=== PATIENT | male | born 1985 | race Hispanic/Latino ===

== ENCOUNTER 2016-12-05 19:56 | Emergency (ER) | payer SELFPAY ==
[2016-12-05 21:22] LABS: Basophils % (Auto) 0.9 % (0.0-1.8); Eosinophils % (Auto) 2.7 % (0.0-4.3); Hematocrit 45.6 % (35.5-45.6); Hemoglobin 15.1 gm/dl (11.8-15.2); Mean Corpuscular HGB Conc 33 % (32-34); Mean Corpuscular Hemoglobin 31 pg (28-32); Mean Corpuscular Volume 93 fl (84-94); Platelet Count 214 K/mm3 (140-440); Red Blood Count 4.89 M/mm3 (3.65-5.03); Red Cell Distribution Width 13.9 % (13.2-15.2); White Blood Count 11.7 K/mm3 (4.5-11.0)
[2016-12-05 21:29] LABS: Urine Drugs of Abuse Note Disclamer
[2016-12-05 21:33] LABS: Anion Gap 19 mmol/L; Blood Urea Nitrogen 12 mg/dL (9-20); Calcium 9.7 mg/dL (8.4-10.2); Carbon Dioxide 25 mmol/L (22-30); Chloride 104.2 mmol/L (98-107); Glucose 65 mg/dL (75-100); Potassium 4.8 mmol/L (3.6-5.0); Sodium 143 mmol/L (137-145)
[2016-12-05 21:58] LABS: Bilirubin,Urine NEG (Negative); Blood,Urine NEG (Negative); Ketones,Urine TR mg/dL (Negative); Leukocyte Esterase,Urine NEG (Negative); Mucus,Urine 1+ /HPF; Nitrite,Urine NEG (Negative); Protein,Urine <15 mg/dL mg/dL (Negative)
--- NOTE | 2016-12-06 07:01 | Emergency Department Report ---
ED Psych HPI - General Chief Complaint: Psych Stated Complaint: MH EVAL/HEARING VOICES Time Seen by Provider: 12/06/16 06:48 Source: patient Mode of arrival: Ambulatory Limitations: No Limitations - History of Present Illness Initial Comments: 31-year-old male presents to the emergency department for mental health evaluation. Patient states for the past 2 weeks he has been having paranoid thoughts and hearing voices. He denies suicidal or homicidal thoughts. He states he has been compliant with his medication. There are no other complaints. -: Gradual, week(s) (2) Associated Psychiatric Symptoms: auditory hallucinations History of same: Yes Quality: constant Improves With: none Worsens With: none Associated Symptoms: denies other symptoms Treatments Prior to Arrival: none - Related Data Previous Rx's Medication Instructions Recorded Last Taken Type [place] Carbonate [Eskalith] 300 mg PO BID #90 capsule 02/12/14 Unknown Rx traMADol [Ultram 50 MG tab] 50 mg PO Q6HR PRN #20 tablet 05/25/15 Unknown Rx Allergies Allergy/AdvReac Type Severity Reaction Status Date / Time lactase [From Dairy Aid] Allergy Nausea Verified 07/12/14 19:21 ED Review of Systems ROS: Stated complaint: MH EVAL/HEARING VOICES Other details as noted in HPI Comment: All other systems reviewed and negative Psychiatric: auditory hallucinations, other (paranoia). denies: visual hallucinations, homicidal thoughts, suicidal thoughts ED Past Medical Hx - Past Medical History Previous Medical History?: Yes Hx Psychiatric Treatment: Yes (Bipolar depression, Chronic anxiety, Schizo affective) Additional medical history: bronchitis - Surgical History Past Surgical History?: No - Family History Family history: no significant - Social History Smoking Status: Current Every Day Smoker Substance Use Type: None - Medications Home Medications: Home Medications Medication Instructions Recorded Confirmed Last Taken Type [place] Carbonate [Eskalith] 300 mg PO BID #90 capsule 02/12/14 12/06/16 Unknown Rx traMADol [Ultram 50 MG tab] 50 mg PO Q6HR PRN #20 tablet 05/25/15 12/06/16 Unknown Rx ED Physical Exam - General Limitations: No Limitations General appearance: alert, in no apparent distress - Head Head exam: Present: atraumatic, normocephalic - Eye Eye exam: Present: normal appearance, PERRL, EOMI - ENT ENT exam: Present: normal exam, normal orophraynx, mucous membranes moist - Neck Neck exam: Present: normal inspection, full ROM. Absent: tenderness - Respiratory Respiratory exam: Present: normal lung sounds bilaterally. Absent: respiratory distress - Cardiovascular Cardiovascular Exam: Present: regular rate, normal rhythm, normal heart sounds - GI/Abdominal GI/Abdominal exam: Present: soft, normal bowel sounds. Absent: distended, tenderness - Extremities Exam Extremities exam: Present: normal inspection, full ROM. Absent: tenderness - Back Exam Back exam: Present: normal inspection, full ROM. Absent: tenderness - Neurological Exam Neurological exam: Present: alert, oriented X3. Absent: motor sensory deficit - Skin Skin exam: Present: warm, dry, intact ED Course Vital Signs 12/05/16 12/06/16 12/06/16 21:03 00:47 04:27 Temperature 98.1 F 97.6 F 98.6 F Pulse Rate 93 H 66 60 Respiratory 18 18 18 Rate Blood Pressure 145/75 113/79 115/74 Blood Pressure [Left] O2 Sat by Pulse 97 100 100 Oximetry 12/06/16 12/06/16 05:15 09:36 Temperature 97.6 F Pulse Rate 77 Respiratory 16 16 Rate Blood Pressure Blood Pressure 120/59 [Left] O2 Sat by Pulse 99 99 Oximetry ED Medical Decision Making - Lab Data Result diagrams: 12/05/16 21:11 12/05/16 21:11 - Medical Decision Making Lab results reviewed and discussed with the patient. Patient has been medically cleared. Patient is awaiting mental health evaluation. 1100-patient has been evaluated by mental health. Per their report, the patient is now complaining of suicidal ideations, with no plan. On 1013 has been signed and placed on patient's chart. Patient is currently awaiting inpatient placement. - Differential Diagnosis schizoaffective disorder Critical care attestation.: If time is entered above; I have spent that time in minutes in the direct care of this critically ill patient, excluding procedure time. ED Disposition Clinical Impression: Suicidal ideation Schizoaffective disorder Qualifiers: Schizoaffective disorder type: bipolar Qualified Code(s): F25.0 - Schizoaffective disorder, bipolar type Disposition: DC/TX PSY HOSP/PSY UNIT Is pt being admited?: No Condition: Stable Referrals: PRIMARY CARE, [Primary Care Provider] - 3-5 Days Time of Disposition: 11:09
[2016-12-06 09:38] VITALS: BP 120/59
--- NOTE | 2016-12-06 15:25 | Consultation ---
History of Present Illness - Reason for Consult Consult date: 12/06/16 Reason for consult: Mental Health Evaluation Requesting physician: LESIA MASSEY - Chief Complaint Chief complaint: "I am suicidal" - History of Present Psychiatric Illness 31-year-old male presents to the emergency department for mental health evaluation. Patient states for the past 2 weeks he has been having paranoid thoughts and hearing voices. This patient is known to me. Today patient is calm , cooperative with a circumstantial thought process. He stated that he has been on "the edge for 2 weeks." He stated hearing ringing in his ears and anxious about a female resident at his custodial. He feels that she wants to poison him , so he does not eat lunch or dinner at the custodial. Patient has an hx of depression/anxiety and rate both 7/10, with 10 being the worse. Patient could not state if he was suicidal. He stated that he last took his medication 3 days ago. He does has a hx of recreation dug use, but denies alcohol consumption ( etoh). He denies sleep disturbance or a poor appetite. Medications and Allergies Allergies Allergy/AdvReac Type Severity Reaction Status Date / Time lactase [From Dairy Aid] Allergy Nausea Verified 07/12/14 19:21 Home Medications Medication Instructions Recorded Confirmed Last Taken Type [place] Carbonate [Eskalith] 300 mg PO BID #90 capsule 02/12/14 12/06/16 Unknown Rx traMADol [Ultram 50 MG tab] 50 mg PO Q6HR PRN #20 tablet 05/25/15 12/06/16 Unknown Rx Past psychiatric history - Past Medical History Past Medical History: other (Bronchitis) Past Surgical History: No surgical history - past Psychiatric treatment and history Psych: Anxiety, Bipolar, Depression, Schizophrenia psychiatric treatment history: Multiple inpatient settings. Denies a fam psy hx. - Social History Social history: other (Live at a custodial) Mental Status Exam - Vital signs Last Vital Signs Temp 97.6 F 12/06/16 09:36 Pulse 77 12/06/16 09:36 Resp 18 12/06/16 09:36 BP 120/59 12/06/16 09:36 Pulse Ox 99 12/06/16 09:36 - Exam Narrative exam: ROS (+) psychotic, (+) depression MSE: Appearance: cooperative, calm Behavior: poor eye contact Speech: loud rate and tone Mood: "I don't know" Affect: flat Thought Process: circumstantial Thought Content: denies HI's and VH's, paranoid Motor Activity: ambulatory Cognition: a/ox 3 Insight: limited Judgment: limited Results Result Diagrams: 12/05/16 21:11 12/05/16 21:11 Abnormal lab results 12/05/16 12/05/16 Range/Units 21:11 21:11 WBC 11.7 H (4.5-11.0) K/mm3 Glucose 65 L (75-100) mg/dL All other labs normal. Assessment and Plan Assessment and plan: Impression: Unspecified Mood DO with Psychotic Features. 31-year-old male presents to the emergency department for mental health evaluation. This patient is known to me. Today patient is calm, cooperative with a circumstantial thought process. He stated that he has been on "the edge for 2 weeks." He stated hearing ringing in his ears and anxious about a female resident at his custodial. He feels that she wants to poison him, so he does not eat lunch or dinner at the custodial. UDS is negative. Patient is no threat to self. Patient would like to reside at another custodial. DD: R/O Bipolar, Schizoaffective DO. Recommendation/Plan: Rescind 1013 and patient can continue his home medications.
[2016-12-06] MEDS ORDERED: ESKALITH PO SCH (20:00)
== END 2016-12-06 19:43 ==
LOC: ED 19:56
DX: F39 Unspecified mood [affective] disorder (principal); F31.9 Bipolar disorder, unspecified; F20.9 Schizophrenia, unspecified
CPT/HCPCS: 36415; 80048; 80178; 80307; 81001; 85025; 99284; G0480; 80320

== ENCOUNTER 2017-01-03 17:52 | Emergency (ER) | payer OTHER ==
[2017-01-03 19:11] LABS: Basophils % (Auto) 0.6 % (0.0-1.8); Eosinophils % (Auto) 0.9 % (0.0-4.3); Hematocrit 44.5 % (35.5-45.6); Hemoglobin 14.9 gm/dl (11.8-15.2); Mean Corpuscular HGB Conc 33 % (32-34); Mean Corpuscular Hemoglobin 31 pg (28-32); Mean Corpuscular Volume 93 fl (84-94); Platelet Count 208 K/mm3 (140-440); Red Blood Count 4.76 M/mm3 (3.65-5.03); Red Cell Distribution Width 14.1 % (13.2-15.2); White Blood Count 14.1 K/mm3 (4.5-11.0)
[2017-01-03 19:17] LABS: Urine Drugs of Abuse Note Disclamer
[2017-01-03 19:25] LABS: Anion Gap 17 mmol/L; Blood Urea Nitrogen 14 mg/dL (9-20); Calcium 9.9 mg/dL (8.4-10.2); Carbon Dioxide 27 mmol/L (22-30); Chloride 101.6 mmol/L (98-107); Glucose 89 mg/dL (75-100); Sodium 142 mmol/L (137-145)
[2017-01-03 19:39] LABS: Bilirubin,Urine NEG (Negative); Blood,Urine NEG (Negative); Ketones,Urine NEG (Negative); Leukocyte Esterase,Urine NEG (Negative); Nitrite,Urine NEG (Negative); Protein,Urine <15 mg/dL mg/dL (Negative); Urobilinogen,Urine < 2.0 mg/dL (<2.0)
--- NOTE | 2017-01-03 21:46 | Emergency Department Report ---
ED Psych HPI - General Chief Complaint: Psych Stated Complaint: SUICIDAL Time Seen by Provider: 01/03/17 21:36 Source: patient Mode of arrival: Ambulatory - History of Present Illness Initial Comments: Pt is a 31 yr old male with a history of Bipolar depression, Chronic anxiety, Schizo affective who presents from his retirement c/o SI with plan to overdose on all his psych medications. Pt reports he has been feeling this way for a long time since he was discharge from the hospital a while ago. Pt admits to drinking alcohol and eating marijuana laced foods. Pt [facility] to be [facility] to [facility]. Otherwise no other complaints. - Related Data Previous Rx's Medication Instructions Recorded Last Taken Type [place] Carbonate [Eskalith] 300 mg PO BID #90 capsule 02/12/14 Unknown Rx traMADol [Ultram 50 MG tab] 50 mg PO Q6HR PRN #20 tablet 05/25/15 Unknown Rx Allergies Allergy/AdvReac Type Severity Reaction Status Date / Time lactase [From Dairy Aid] Allergy Nausea Verified 07/12/14 19:21 ED Review of Systems ROS: Stated complaint: SUICIDAL Other details as noted in HPI Comment: All other systems reviewed and negative ED Past Medical Hx - Past Medical History Previous Medical History?: Yes Hx Psychiatric Treatment: Yes (Bipolar depression, Chronic anxiety, Schizo affective) Additional medical history: bronchitis - Surgical History Past Surgical History?: No - Social History Smoking Status: Current Every Day Smoker Substance Use Type: Alcohol, Prescribed - Medications Home Medications: Home Medications Medication Instructions Recorded Confirmed Last Taken Type [place] Carbonate [Eskalith] 300 mg PO BID #90 capsule 02/12/14 12/06/16 Unknown Rx traMADol [Ultram 50 MG tab] 50 mg PO Q6HR PRN #20 tablet 05/25/15 12/06/16 Unknown Rx ED Physical Exam - General Limitations: No Limitations General appearance: alert, in no apparent distress - Head Head exam: Present: atraumatic, normocephalic - Eye Eye exam: Present: normal appearance - ENT ENT exam: Present: mucous membranes moist - Neck Neck exam: Present: normal inspection - Respiratory Respiratory exam: Present: normal lung sounds bilaterally. Absent: respiratory distress - Cardiovascular Cardiovascular Exam: Present: regular rate, normal rhythm. Absent: systolic murmur, diastolic murmur, rubs, gallop - GI/Abdominal GI/Abdominal exam: Present: soft, normal bowel sounds - Rectal Rectal exam: Present: deferred - Extremities Exam Extremities exam: Present: normal inspection - Back Exam Back exam: Present: normal inspection - Neurological Exam Neurological exam: Present: alert, oriented X3 - Psychiatric Psychiatric exam: Present: depressed, flat affect, suicidal ideation. Absent: agitated, homicidal ideation - Skin Skin exam: Present: warm, dry, intact, normal color. Absent: rash ED Course Vital Signs 01/03/17 18:33 Temperature 98.1 F Pulse Rate 101 H Respiratory 16 Rate Blood Pressure 135/80 O2 Sat by Pulse 99 Oximetry ED Medical Decision Making - Lab Data Result diagrams: 01/03/17 Unknown 01/03/17 18:38 Critical care attestation.: If time is entered above; I have spent that time in minutes in the direct care of this critically ill patient, excluding procedure time. ED Disposition Condition: Stable Referrals: PRIMARY CARE, [Primary Care Provider] - 3-5 Days
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
[2017-01-04] MEDS ORDERED: BUSPAR ONE (21:49)
[2017-01-04] MEDS: BUSPAR PO SCH (22:06)
[2017-01-04] MEDS: ESKALITH PO SCH (22:07)
[2017-01-05] MEDS: BUSPAR PO SCH ×3 (08:59→20:30)
[2017-01-05] MEDS: PROzac PO SCH (10:50)
[2017-01-05] MEDS: ESKALITH PO SCH ×2 (10:50→22:14)
--- NOTE | 2017-01-05 15:57 | Progress Note ---
Subjective - Reason for Consult Reason for consult: expressing SI Mental Status Exam - Vital signs Last Vital Signs Temp 98.1 F 01/05/17 12:10 Pulse 70 01/05/17 12:10 Resp 18 01/05/17 12:12 BP 105/69 01/05/17 12:10 Pulse Ox 98 01/05/17 12:10 Assessment and Plan Patient continues to report passive SI. Mood remains fairly withdrawn and depressed. General Appearance: casually dressed, no acute distress Sensorium/Consciousness: alert and responding to external stimuli; clear Orientation: person, place, time and situation Eye Contact: limited Attitude / Behavior: guarded Psychomotor & Musculoskeletal Activity: WNL Mood: ok Affect: constricted, limited range Speech / Language: fluent, with normal rate/rhythm/tone Thought Processes: organized, logical, linear Thought Content: Passive SI, no HI Perception: no AVH Insight: limited Judgement: limitied Capacity for ADLs: independent Plan: Continue current pharmacotherapeutic interventions Continue the referral process for inpatient psychiatric services
[2017-01-06] MEDS: BUSPAR PO SCH ×3 (08:06→20:20)
[2017-01-06] MEDS: ESKALITH PO SCH ×2 (10:30→22:27)
[2017-01-06] MEDS: PROzac PO SCH (10:30)
--- NOTE | 2017-01-06 15:20 | Progress Note ---
Subjective - Reason for Consult Reason for consult: SI Mental Status Exam - Vital signs Last Vital Signs Temp 98.9 F 01/06/17 09:35 Pulse 74 01/06/17 09:35 Resp 18 01/06/17 09:35 BP 114/66 01/06/17 09:35 Pulse Ox 97 01/06/17 09:35 Assessment and Plan Patient continues to report passive SI. Mood remains fairly withdrawn and depressed. General Appearance: casually dressed, no acute distress Sensorium/Consciousness: alert and responding to external stimuli; clear Orientation: person, place, time and situation Eye Contact: limited Attitude / Behavior: guarded Psychomotor & Musculoskeletal Activity: WNL Mood: ok Affect: constricted, limited range Speech / Language: fluent, with normal rate/rhythm/tone Thought Processes: organized, logical, linear Thought Content: Passive SI, no HI Perception: no AVH Insight: limited Judgement: limitied Capacity for ADLs: independent Plan: Continue current pharmacotherapeutic interventions Continue the referral process for inpatient psychiatric services. Patient is pending acceptance at [facility]
--- NOTE | 2017-01-07 09:40 | Progress Note ---
Subjective - Reason for Consult Consult date: 01/07/17 Reason for consult: Pscyhiatry Follow-up - Chief Complaint Chief complaint: 'My life sucks" Mr. Pace is a 31 yr old male with a history of chronic anxiety & schizoaffective disorder, bipolar type who presented to the ED from his long-term c/o SI with plan to overdose on all his psych medications. Today patient is still withdrawn, sad, with passive SI's. He denies HI's and AVH's. He stated that he can't sleep at night because of the noise in the ER. He denies a poor appetite. He denies side effects of his medications. Mental Status Exam - Vital signs Last Vital Signs Temp 98.6 F 01/07/17 08:44 Pulse 91 H 01/07/17 08:44 Resp 20 01/07/17 08:44 BP 101/71 01/07/17 08:44 Pulse Ox 100 01/07/17 08:44 - Exam Narrative exam: MSE: Appearance: calm, cooperative Behavior: poor eye contact Speech: regular rate and tone Mood: "feel down" sad, withdrawn Affect: flat Thought Process: circumstantial Thought Content: denies HI's and AVH's Motor Activity: ambulatory Cognition: A/Ox 3 Insight: limited Judgment: limited Assessment and Plan Impression: Historical Dx: Schizoaffective DO, Anxiety DO Alcohol/Cannabis Use DO's. Today patient is still withdrawn, sad, with passive SI's. He denies HI's and AVH's. No acute withdrawals noted. Recommendation/Plan: Continue 1013 with pending placement to [facility] Continue Seroquel 300mg hs for mood/psychotic symptoms, Buspar 10mg tid for anxiety, Prozac 40mg daily for anxiety and [place] 300mg. Discusses possible metabolic side effects of seroquel and possible suicidality/medication induced srinivas reference antidepressants with patients.
[2017-01-07] MEDS: PROzac PO SCH (09:46)
[2017-01-07] MEDS: ESKALITH PO SCH ×2 (09:46→21:54)
[2017-01-07] MEDS: BUSPAR PO SCH ×3 (09:46→20:05)
[2017-01-08 08:08] VITALS: BP 100/68
--- NOTE | 2017-01-08 10:11 | Progress Note ---
Subjective - Reason for Consult Consult date: 01/08/17 Reason for consult: Psychiatry Follow-up - Chief Complaint Chief complaint: "I am ready to go to [facility]" Mr. Pace is a 31 yr old male with a history of chronic anxiety & schizoaffective disorder, bipolar type who presented to the ED from his snf c/o SI with plan to overdose on all his psych medications. Today patient is still withdrawn but calm and cooperative. He stated that he does not feel safe being discharged because of the SI's currently he is experiencing. He stated that he will use all the resources [facility] have to offer once he is discharged from that hospital. He stated that people (the general public) know his thoughts and that bothers him. He denies HI's, VH's, but does have intermittent auditory hallucinations. He denies sleep disturbance or a poor appetite. He denies side effects of his medications. Mental Status Exam - Vital signs Last Vital Signs Temp 98.0 F 01/08/17 08:07 Pulse 78 01/08/17 08:07 Resp 18 01/08/17 08:07 BP 100/68 01/08/17 08:07 Pulse Ox 98 01/08/17 08:07 - Exam Narrative exam: MSE: Appearance: calm, cooperative Behavior: poor eye contact Speech: regular rate and tone Mood: "okay" withdrawn Affect: flat Thought Process: circumstantial Thought Content: denies HI's and VH's Motor Activity: ambulatory Cognition: A/Ox 3 Insight: limited Judgment: limited Assessment and Plan Impression: Historical Dx: Schizoaffective DO, Anxiety DO Alcohol/Cannabis Use DO's. Today patient is still withdrawn, but calm and cooperative. He denies HI' s and VH's. No acute withdrawals noted. Recommendation/Plan: Continue 1013 with placement to [facility] awaiting transfer time. Continue Seroquel 300mg HS for mood/psychotic symptoms, Buspar 10mg tid for anxiety, Prozac 40mg daily for anxiety and [place] 300mg. Discusses possible metabolic side effects of seroquel and possible suicidality/ medication induced srinivas reference antidepressants with patients.
[2017-01-08] MEDS: ESKALITH PO SCH (10:46)
[2017-01-08] MEDS: PROzac PO SCH (10:46)
[2017-01-08] MEDS: BUSPAR PO SCH ×2 (10:48→14:01)
== END 2017-01-08 14:02 ==
LOC: ED 17:52 → EEVIPCON 17:52 → ED 01-08 14:02
DX: R45.851 Suicidal ideations (principal); F31.9 Bipolar disorder, unspecified; F25.9 Schizoaffective disorder, unspecified
CPT/HCPCS: 36415; 80048; 80178; 80307; 81001; 85025; 99285; G0480; 80320

== ENCOUNTER 2017-02-11 05:44 | Emergency (ER) | payer SELFPAY ==
[2017-02-11 07:10] LABS: Eosinophils % (Auto) 2.8 % (0.0-4.3); Hematocrit 42.6 % (35.5-45.6); Hemoglobin 14.6 gm/dl (11.8-15.2); Mean Corpuscular HGB Conc 34 % (32-34); Mean Corpuscular Hemoglobin 31 pg (28-32); Mean Corpuscular Volume 91 fl (84-94); Platelet Count 252 K/mm3 (140-440); Red Blood Count 4.66 M/mm3 (3.65-5.03); Red Cell Distribution Width 13.8 % (13.2-15.2); White Blood Count 11.3 K/mm3 (4.5-11.0)
[2017-02-11 07:26] LABS: Anion Gap 16 mmol/L; Blood Urea Nitrogen 7 mg/dL (9-20); Carbon Dioxide 28 mmol/L (22-30); Chloride 101.3 mmol/L (98-107); Glucose 100 mg/dL (75-100); Potassium 4.4 mmol/L (3.6-5.0); Sodium 141 mmol/L (137-145)
[2017-02-11 07:38] LABS: Bilirubin,Urine NEG (Negative); Blood,Urine NEG (Negative); Ketones,Urine NEG (Negative); Leukocyte Esterase,Urine NEG (Negative); Mucus,Urine FEW /HPF; Nitrite,Urine NEG (Negative); Protein,Urine <15 mg/dL mg/dL (Negative)
[2017-02-11 08:51] LABS: Urine Drugs of Abuse Note Disclamer
--- NOTE | 2017-02-11 09:44 | Emergency Department Report ---
ED Psych HPI - General Chief Complaint: Psych Stated Complaint: SUICIDAL/MH EVAL Time Seen by Provider: 02/11/17 08:20 Source: patient Mode of arrival: Ambulatory - History of Present Illness Initial Comments: The patient admits that he ran away from his [facility] because he would like to go to "[facility] for 2 months at least". He states that he was at [facility] for 2 months in the past for similar suicidal ideation. He states in the past he has taken a drug overdose. At this time he denies any actual self harm. He has not taken an overdose. He has not traumatized himself. He is requesting long-term psychiatric care in an inpatient facility. He denies any active hallucinosis. He is not voicing any paranoid ideation. MD Complaint: suicidal ideation, feels depressed -: year(s) Associated Psychiatric Symptoms: suicidal ideation History of same: Yes Quality: intermittent Improves With: none Worsens With: none Context: other (dissatisfied with his group will) Associated Symptoms: denies other symptoms If Self Harm: admits thoughts of - Related Data Home Medications Medication Instructions Recorded Confirmed Last Taken FLUoxetine HCL [PROzac] 40 mg PO QAM 02/11/17 02/11/17 Unknown QUEtiapine [SEROquel] 200 mg PO QAM 02/11/17 02/11/17 Unknown QUEtiapine [SEROquel] 600 mg PO QHS 02/11/17 02/11/17 Unknown busPIRone [Buspar] 10 mg PO BID 02/11/17 02/11/17 Unknown Previous Rx's Medication Instructions Recorded Last Taken Type [place] Carbonate [Eskalith] 300 mg PO BID #90 capsule 02/12/14 Unknown Rx traMADol [Ultram 50 MG tab] 50 mg PO Q6HR PRN #20 tablet 05/25/15 Unknown Rx Allergies Allergy/AdvReac Type Severity Reaction Status Date / Time lactase [From Dairy Aid] Allergy Nausea Verified 07/12/14 19:21 ED Review of Systems ROS: Stated complaint: SUICIDAL/MH EVAL Other details as noted in HPI Constitutional: denies: chills, fever Eyes: denies: eye pain, eye discharge, vision change ENT: denies: ear pain, throat pain Respiratory: denies: cough, shortness of breath, wheezing Cardiovascular: denies: chest pain, palpitations Endocrine: no symptoms reported Gastrointestinal: denies: abdominal pain, nausea, diarrhea Genitourinary: denies: urgency, dysuria Musculoskeletal: denies: back pain, joint swelling, arthralgia Skin: denies: rash, lesions Neurological: denies: headache, weakness, paresthesias Psychiatric: suicidal thoughts. denies: anxiety Hematological/Lymphatic: denies: easy bleeding, easy bruising ED Past Medical Hx - Past Medical History Previous Medical History?: Yes Hx Psychiatric Treatment: Yes (Bipolar depression, Chronic anxiety, Schizo affective) Additional medical history: bronchitis - Social History Smoking Status: Current Every Day Smoker Substance Use Type: Alcohol - Medications Home Medications: Home Medications Medication Instructions Recorded Confirmed Last Taken Type Tolu Carbonate [Eskalith] 300 mg PO BID #90 capsule 02/12/14 02/11/17 Unknown Rx traMADol [Ultram 50 MG tab] 50 mg PO Q6HR PRN #20 tablet 05/25/15 02/11/17 Unknown Rx FLUoxetine HCL [PROzac] 40 mg PO QAM 02/11/17 02/11/17 Unknown History QUEtiapine [SEROquel] 200 mg PO QAM 02/11/17 02/11/17 Unknown History QUEtiapine [SEROquel] 600 mg PO QHS 02/11/17 02/11/17 Unknown History busPIRone [Buspar] 10 mg PO BID 02/11/17 02/11/17 Unknown History ED Physical Exam - General Limitations: Other General appearance: alert, in no apparent distress - Head Head exam: Present: atraumatic, normocephalic - Eye Eye exam: Present: normal appearance - ENT ENT exam: Present: mucous membranes moist - Neck Neck exam: Present: normal inspection - Respiratory Respiratory exam: Present: normal lung sounds bilaterally. Absent: respiratory distress - Cardiovascular Cardiovascular Exam: Present: regular rate, normal rhythm. Absent: systolic murmur, diastolic murmur, rubs, gallop - GI/Abdominal GI/Abdominal exam: Present: soft, normal bowel sounds. Absent: distended, tenderness, guarding, rebound - Rectal Rectal exam: Present: deferred - Extremities Exam Extremities exam: Present: normal inspection - Back Exam Back exam: Present: normal inspection - Neurological Exam Neurological exam: Present: alert, oriented X3, CN II-XII intact. Absent: motor sensory deficit - Psychiatric Psychiatric exam: Present: normal mood, flat affect - Skin Skin exam: Present: warm, dry, intact, normal color. Absent: rash ED Course Vital Signs 02/11/17 02/11/17 02/11/17 06:02 09:28 09:29 Temperature 98.5 F 97.9 F Pulse Rate 87 87 Respiratory 18 16 16 Rate Blood Pressure 122/73 Blood Pressure 114/69 [Left] O2 Sat by Pulse 96 98 98 Oximetry - Reevaluation(s) Reevaluation #1: Psychiatry staff has determined that this patient needs 1013 criteria. His transfer is pending. 02/11/17 13:00 ED Medical Decision Making - Lab Data Result diagrams: 02/11/17 06:52 02/11/17 06:52 Laboratory Results - last 24 hr 02/11/17 02/11/17 02/11/17 06:52 06:52 06:58 WBC 11.3 H RBC 4.66 Hgb 14.6 Hct 42.6 MCV 91 MCH 31 MCHC 34 RDW 13.8 Plt Count 252 Lymph % (Auto) 21.1 [place] % (Auto) 8.3 H Eos % (Auto) 2.8 Baso % (Auto) 1.0 Lymph # 2.4 [place] # 0.9 H Eos # 0.3 Baso # 0.1 Seg Neutrophils % 66.8 Seg Neutrophils # 7.5 Sodium 141 Potassium 4.4 Chloride 101.3 Carbon Dioxide 28 Anion Gap 16 BUN 7 L Creatinine 1.0 Estimated GFR > 60 BUN/Creatinine Ratio 7.00 Glucose 100 Calcium 10.0 Urine Color Yellow Urine Turbidity Clear Urine pH 6.0 Ur Specific [place] 1.015 Urine Protein <15 mg/dl Urine Glucose (UA) Neg Urine Ketones Neg Urine Blood Neg Urine Nitrite Neg Urine Bilirubin Neg Urine Urobilinogen 2.0 Ur Leukocyte Esterase Neg Urine WBC (Auto) 2.0 Urine RBC (Auto) 1.0 U Epithel Cells (Auto) < 1.0 Urine Mucus Few Critical care attestation.: If time is entered above; I have spent that time in minutes in the direct care of this critically ill patient, excluding procedure time. ED Disposition Clinical Impression: Suicidal ideation Bipolar disorder Qualifiers: Active/Remission status: remission status unspecified Qualified Code(s): F31.9 - Bipolar disorder, unspecified Disposition: DC/TX-65 PSY HOSP/PSY UNIT Is pt being admited?: No Does the pt Need Aspirin: No Condition: Stable Referrals: PRIMARY CARE, [Primary Care Provider] - 3-5 Days Time of Disposition: 13:00
--- NOTE | 2017-02-11 15:43 | Consultation ---
History of Present Illness - Reason for Consult Consult date: 02/11/17 Reason for consult: Mental Health Evaluation Requesting physician: SANTOS RUANO - Chief Complaint Chief complaint: "I don't know what is happening" - History of Present Psychiatric Illness This is a 31 y.o. white male presenting to [facility] for SI's and anxiety. This patient is known to me. Today patient is cooperative, but anxious and disorganized during the assessment. He stated that he is anxious about not being able to move with his sister who is located in [place]. He is currently on probation and cannot leave the state. He stated that his life is "screwed up " and want to without a plan. He could not elaborate more about his SI's. Patient has attempted suicide in the past by overdosing on pills. He stated hearing voices the past 3 days telling him to harm himself. He denies HI's and VH's. He rate his depression 6/10, with 10 being the worse. He report sleep disturbance, but denies a poor appetite. He denies recreational drug use and excessive alcohol consumption (etoh). He stated that he would like to go to [facility] if possible. Medications and Allergies Allergies Allergy/AdvReac Type Severity Reaction Status Date / Time lactase [From Dairy Aid] Allergy Nausea Verified 07/12/14 19:21 Home Medications Medication Instructions Recorded Confirmed Last Taken Type [place] Carbonate [Eskalith] 300 mg PO BID #90 capsule 02/12/14 02/11/17 Unknown Rx traMADol [Ultram 50 MG tab] 50 mg PO Q6HR PRN #20 tablet 05/25/15 02/11/17 Unknown Rx FLUoxetine HCL [PROzac] 40 mg PO QAM 02/11/17 02/11/17 Unknown History QUEtiapine [SEROquel] 200 mg PO QAM 02/11/17 02/11/17 Unknown History QUEtiapine [SEROquel] 600 mg PO QHS 02/11/17 02/11/17 Unknown History busPIRone [Buspar] 10 mg PO BID 02/11/17 02/11/17 Unknown History Past psychiatric history - Past Medical History Past Medical History: No medical history Past Surgical History: No surgical history - past Psychiatric treatment and history psychiatric treatment history: Multiple inpatient psy settings. Denies a fam psy hx. - Social History Social history: other (GED, resides at a prison) Mental Status Exam - Vital signs Last Vital Signs Temp 97.9 F 02/11/17 09:28 Pulse 87 02/11/17 09:28 Resp 16 02/11/17 09:29 BP 114/69 02/11/17 09:28 Pulse Ox 98 02/11/17 09:29 - Exam Narrative exam: ROS: (+) anxious, (+) depression MSE: Appearance: cooperative Behavior: regular eye contact Speech: regular rate and tone Mood: "horrible" Affect: flat Thought Process: circumstantial Thought Content: denies SI/HI's and AVH's, disorganized Motor Activity: lying in bed Cognition: A/Ox 3 Insight: limited Judgment: limited Results Result Diagrams: 02/11/17 06:52 02/11/17 06:52 Abnormal lab results 02/11/17 02/11/17 Range/Units 06:52 06:52 WBC 11.3 H (4.5-11.0) K/mm3 [place] % (Auto) 8.3 H (0.0-7.3) % [place] # 0.9 H (0.0-0.8) K/mm3 BUN 7 L (9-20) mg/dL All other labs normal. Assessment and Plan Assessment and plan: Impression: Historical Dx: Schizoaffective DO. MDD Severe Type. Today patient is cooperative, but anxious during the assessment. Patient experiencing AH's. DDx: Schizophrenia Recommendation/Plan: Initiate 1013 with placement to inpatient psy services. Start Seroquel 300 mg PO HS for psychotic symptoms/mood, Buspar 10 mg PO BID for anxiety, and [place] 300 mg PO BID for mood. Discussed possible metabolic side effects of Seroquel with patient.
[2017-02-11] MEDS: ESKALITH PO SCH (22:39)
[2017-02-11] MEDS: BUSPAR PO SCH (22:39)
[2017-02-12] MEDS: ESKALITH PO SCH ×2 (10:34→22:45)
--- NOTE | 2017-02-12 11:08 | Progress Note ---
Subjective - Reason for Consult Consult date: 02/12/17 Reason for consult: Psychiatry Follow-up - Chief Complaint Chief complaint: "I want the voices to go away" This is a 31 y.o. white male presenting to [facility] for SI's and anxiety. This patient is known to me. Today patient is calm and cooperative during the assessment. He stated that the voices he hear have not decreased and this drives him "crazy." He stated that he is still suicidal without a plan. He is adamant about wanting to move to [place] with his sister. He is aware that he must pay his probation fine before he can move. He denies HI's and VH's. He stated that he slept "okay" last night. He denies a poor appetite. Patient denies any side effects of his medications. Mental Status Exam - Vital signs Last Vital Signs Temp 98.4 F 02/12/17 08:39 Pulse 65 02/12/17 08:39 Resp 20 02/12/17 08:39 BP 119/80 02/12/17 08:39 Pulse Ox 100 02/12/17 08:39 - Exam Narrative exam: MSE: Appearance: calm, cooperative Behavior: regular eye contact Speech: regular rate and tone Mood: "bad" Affect: flat Thought Process: circumstantial Thought Content: denies SI/HI's and AVH's Motor Activity: lying in bed Cognition: A/Ox 3 Insight: limited Judgment: limited Assessment and Plan mpression: Historical Dx: Schizoaffective DO. MDD Severe Type. Today patient is calm and cooperative during the assessment. Patient still suicidal with AH's. Recommendation/Plan: Continue 1013 with placement to inpatient psy services. Modify Seroquel to 400 mg PO HS for psychotic symptoms/mood, Buspar 10 mg PO BID for anxiety, and [place] 300 mg PO BID for mood. Discussed possible metabolic side effects of Seroquel with patient.
[2017-02-12] MEDS: BUSPAR PO SCH ×2 (13:30→22:45)
[2017-02-13] MEDS: ESKALITH PO SCH ×2 (10:42→22:02)
[2017-02-13] MEDS: BUSPAR PO SCH ×2 (10:42→22:02)
--- NOTE | 2017-02-13 14:18 | Progress Note ---
Subjective - Reason for Consult Consult date: 02/13/17 Reason for consult: follow up - Chief Complaint Chief complaint: "The herrera are closing in" This is a 31 y.o. white male presenting to [facility] for SI's and anxiety. This patient is known to me and the other members of the psychiatric team. Today patient is calm and cooperative during the assessment. He denies AH today. He discussed how he is tired of his situation and in his mind he thought he could go away to a hospital for a couple of months and his sister would pay his fine and he could go to [place]. He states he feels hopeless about being in the same situation for another 5 years. He states he is miserable, isolates himself , is anxious, and paranoid. He denies a poor appetite. Patient denies any side effects of his medications. Mental Status Exam - Vital signs Last Vital Signs Temp 97.9 F 02/13/17 08:13 Pulse 72 02/13/17 08:13 Resp 16 02/13/17 08:14 BP 111/71 02/13/17 08:13 Pulse Ox 99 02/13/17 08:14 Assessment and Plan MSE: passive thoughts of Appearance: calm, cooperative Behavior: regular eye contact Speech: regular rate and tone Mood: depressed Affect: flat Thought Process: circumstantial Thought Content: denies SI/HI's and AVH's Motor Activity: lying in bed Cognition: A/Ox 3 Insight: limited Judgment: limited Assessment and Plan mpression: Historical Dx: Schizoaffective DO. MDD Severe Type. Today patient is calm and cooperative during the assessment. Recommendation/Plan: Continue 1013 with placement to inpatient psy services. Seroquel was increased to 400 mg PO HS for psychotic symptoms/mood yesterday, Buspar 10 mg PO BID for anxiety, and [place] 300 mg PO BID for mood.
[2017-02-14] MEDS: BUSPAR PO SCH ×2 (10:47→22:00)
[2017-02-14] MEDS: ESKALITH PO SCH ×2 (10:47→22:00)
--- NOTE | 2017-02-14 11:41 | Progress Note ---
Subjective - Reason for Consult Consult date: 02/14/17 Reason for consult: Psychiatry Follow-up - Chief Complaint Chief complaint: "I hope everything goes well" This is a 31 y.o. white male presenting to [facility] for SI's and anxiety. This patient is known to me and the other members of the psychiatric team. Today patient is calm and cooperative during the assessment. He stated the SI's has decreased, but he still feel suicidal. He is adamant about moving to [place] once he pay his probation fine. He stated that [facility] is the best hospital in the [facility] and would like to go there. He denies HI's and AVH's. He stated feeling down today, but could not explain why. Patient denies any side effects of his medications. Mental Status Exam - Vital signs Last Vital Signs Temp 98 F 02/14/17 03:58 Pulse 76 02/14/17 03:58 Resp 18 02/14/17 09:53 BP 114/68 02/14/17 03:58 Pulse Ox 100 02/14/17 09:53 - Exam Narrative exam: MSE: Appearance: calm, cooperative Behavior: regular eye contact Speech: regular rate and tone Mood: "so so" Affect: flat Thought Process: circumstantial Thought Content: denies SI and AVH's Motor Activity: lying in bed Cognition: A/Ox 3 Insight: limited Judgment: limited Assessment and Plan Impression: Historical Dx: Schizoaffective DO. MDD Severe Type. Today patient is calm and cooperative during the assessment. Passive SI's. Recommendation/Plan: Continue 1013 with placement to [facility] pending transport time. Continue Seroquel 400 mg PO HS for psychotic symptoms/ mood yesterday, Buspar 10 mg PO BID for anxiety, and [place] 300 mg PO BID for mood.
[2017-02-14 19:52] VITALS: BP 115/65
== END 2017-02-14 22:38 ==
LOC: ED 05:44 → EEVIPCON 05:44 → ED 02-14 22:38
DX: F31.9 Bipolar disorder, unspecified (principal); R45.851 Suicidal ideations; F17.200 Nicotine dependence, unspecified, uncomplicated
CPT/HCPCS: 36415; 80048; 80178; 80307; 81001; 85025; 99285; G0480; 80320

== ENCOUNTER 2017-02-26 09:48 | Emergency (ER) | payer SELFPAY ==
--- NOTE | 2017-02-26 10:32 | Emergency Department Report ---
Entered by KEYONA MENA, acting as scribe for TATE ACEVES NP. Chief Complaint: Nausea/Vomiting/Diarrhea Stated Complaint: NAUSEA/VOMITING Time Seen by Provider: 02/26/17 10:25 - HPI History of Present Illness: 31 y/o male with PMHx of SI, presents with abd pain and n/v that started 2 days ago after a change in his medication. Pt notes he was switched from Seroquel to risperdal prior to Sx started. He also notes being paranoid on new medication. - ROS Review of Systems: +abd pain +n/v +paranoia - Exam Vital Signs: Vital Signs 02/26/17 10:24 Temperature 97.9 F Pulse Rate 94 H Respiratory 16 Rate Blood Pressure 136/71 O2 Sat by Pulse 100 Oximetry Physical Exam: abd soft/nontender in all quadrants, no rebound or guarding MSE screening note: Focused history and physical exam performed. Due to findings the following was ordered: labs, mhe ED Disposition for MSE Condition: Stable This documentation as recorded by the scribe,KEYONA MENA,accurately reflects the service I personally performed and the decisions made by KETAN resendiz TRACY M, NP.
[2017-02-26 10:48] LABS: Hematocrit 47.3 % (35.5-45.6); Hemoglobin 15.7 gm/dl (11.8-15.2); Mean Corpuscular HGB Conc 33 % (32-34); Mean Corpuscular Hemoglobin 31 pg (28-32); Mean Corpuscular Volume 92 fl (84-94); Platelet Count 210 K/mm3 (140-440); Red Blood Count 5.12 M/mm3 (3.65-5.03); White Blood Count 14.3 K/mm3 (4.5-11.0)
[2017-02-26 11:05] LABS: Alanine Aminotransferase 14 units/L (7-56); Albumin 4.5 g/dL (3.9-5); Albumin/Globulin Ratio 1.7 %; Alkaline Phosphatase 46 units/L (35-129); Anion Gap 17 mmol/L; Blood Urea Nitrogen 9 mg/dL (9-20); Calcium 9.7 mg/dL (8.4-10.2); Carbon Dioxide 23 mmol/L (22-30); Chloride 102.3 mmol/L (98-107); Glucose 101 mg/dL (75-100); Potassium 4.5 mmol/L (3.6-5.0); Sodium 138 mmol/L (137-145); Total Protein 7.1 g/dL (6.3-8.2)
[2017-02-26 11:07] LABS: Urine Drugs of Abuse Note Disclamer
[2017-02-26 11:21] LABS: Bilirubin,Urine NEG (Negative); Blood,Urine NEG (Negative); Ketones,Urine NEG (Negative); Leukocyte Esterase,Urine NEG (Negative); Mucus,Urine FEW /HPF; Nitrite,Urine NEG (Negative); Protein,Urine <15 mg/dL mg/dL (Negative); RBC,Urine < 1.0 /HPF (0.0-6.0); Urobilinogen,Urine < 2.0 mg/dL (<2.0)
[2017-02-26 11:45] LABS: Basophils % (Auto) 0.4 % (0.0-1.8); Eosinophils % (Auto) 0.4 % (0.0-4.3)
--- NOTE | 2017-02-26 13:09 | Emergency Department Report ---
ED N/V/D HPI - General Chief complaint: Nausea/Vomiting/Diarrhea Stated complaint: NAUSEA/VOMITING Time Seen by Provider: 02/26/17 10:25 Source: patient Mode of arrival: Ambulatory Limitations: No Limitations - History of Present Illness MD complaint: nausea, vomiting -: Gradual Description of Vomiting: food contents, watery Associated Abdominal Pain: No Consistency: intermittent, now resolved Improves with: none - Related Data Home Medications Medication Instructions Recorded Confirmed Last Taken FLUoxetine HCL [PROzac] 40 mg PO QAM 02/11/17 02/11/17 Unknown busPIRone [Buspar] 10 mg PO BID 02/11/17 02/11/17 Unknown Previous Rx's Medication Instructions Recorded Last Taken Type [place] Carbonate [Eskalith] 300 mg PO BID #90 capsule 02/12/14 Unknown Rx traMADol [Ultram 50 MG tab] 50 mg PO Q6HR PRN #20 tablet 05/25/15 Unknown Rx QUEtiapine [SEROquel] 200 mg PO QAM #90 tablet 02/26/17 Unknown Rx QUEtiapine [SEROquel] 600 mg PO QHS #90 tablet 02/26/17 Unknown Rx Allergies Allergy/AdvReac Type Severity Reaction Status Date / Time lactase [From Dairy Aid] Allergy Nausea Verified 07/12/14 19:21 ED Review of Systems ROS: Stated complaint: NAUSEA/VOMITING Other details as noted in HPI Comment: All other systems reviewed and negative ED Past Medical Hx - Past Medical History Previous Medical History?: Yes Hx Psychiatric Treatment: Yes (Bipolar depression, Chronic anxiety, Schizo affective) Additional medical history: bronchitis - Surgical History Past Surgical History?: No - Social History Smoking Status: Current Every Day Smoker Substance Use Type: None - Medications Home Medications: Home Medications Medication Instructions Recorded Confirmed Last Taken Type [place] Carbonate [Eskalith] 300 mg PO BID #90 capsule 02/12/14 02/11/17 Unknown Rx traMADol [Ultram 50 MG tab] 50 mg PO Q6HR PRN #20 tablet 05/25/15 02/11/17 Unknown Rx FLUoxetine HCL [PROzac] 40 mg PO QAM 02/11/17 02/11/17 Unknown History busPIRone [Buspar] 10 mg PO BID 02/11/17 02/11/17 Unknown History QUEtiapine [SEROquel] 200 mg PO QAM #90 tablet 02/26/17 Unknown Rx QUEtiapine [SEROquel] 600 mg PO QHS #90 tablet 02/26/17 Unknown Rx ED Physical Exam - General Limitations: No Limitations General appearance: alert, in no apparent distress - Head Head exam: Present: atraumatic, normocephalic - Eye Eye exam: Present: normal appearance - ENT ENT exam: Present: mucous membranes moist - Neck Neck exam: Present: normal inspection - Respiratory Respiratory exam: Present: normal lung sounds bilaterally. Absent: respiratory distress - Cardiovascular Cardiovascular Exam: Present: regular rate, normal rhythm. Absent: systolic murmur, diastolic murmur, rubs, gallop - GI/Abdominal GI/Abdominal exam: Present: soft, normal bowel sounds - Rectal Rectal exam: Present: deferred - Extremities Exam Extremities exam: Present: normal inspection - Back Exam Back exam: Present: normal inspection - Neurological Exam Neurological exam: Present: alert, oriented X3 - Psychiatric Psychiatric exam: Present: normal affect, normal mood - Skin Skin exam: Present: warm, dry, intact, normal color. Absent: rash ED Course Vital Signs 02/26/17 10:24 Temperature 97.9 F Pulse Rate 94 H Respiratory 16 Rate Blood Pressure 136/71 O2 Sat by Pulse 100 Oximetry ED Medical Decision Making - Lab Data Result diagrams: 02/26/17 10:31 02/26/17 10:31 - Medical Decision Making patient doing well just wants me to change his meds back to seroquel Critical care attestation.: If time is entered above; I have spent that time in minutes in the direct care of this critically ill patient, excluding procedure time. ED Disposition Clinical Impression: Bipolar disorder Disposition: DC-01 TO HOME OR SELFCARE Is pt being admited?: No Does the pt Need Aspirin: No Condition: Good Prescriptions: QUEtiapine [SEROquel] 600 mg PO QHS #90 tablet QUEtiapine [SEROquel] 200 mg PO QAM #90 tablet Referrals: PRIMARY CARE, [Primary Care Provider] - 3-5 Days
[2017-02-26 13:54] VITALS: BP 130/70
== END 2017-02-26 13:54 | disposition home or self-care (01) ==
LOC: ED 09:48
DX: F31.9 Bipolar disorder, unspecified (principal); F25.9 Schizoaffective disorder, unspecified; F17.200 Nicotine dependence, unspecified, uncomplicated; F41.9 Anxiety disorder, unspecified; Z91.011 Allergy to milk products
CPT/HCPCS: 36415; 80053; 80307; 81001; 83690; 85025; 99284; G0480; 80320

== ENCOUNTER 2017-05-15 18:24 | Emergency (ER) | payer OTHER ==
[2017-05-15 20:08] LABS: Basophils % (Auto) 0.6 % (0.0-1.8); Eosinophils % (Auto) 1.8 % (0.0-4.3); Hemoglobin 13.4 gm/dl (11.8-15.2); Mean Corpuscular HGB Conc 34 % (32-34); Mean Corpuscular Hemoglobin 31 pg (28-32); Mean Corpuscular Volume 93 fl (84-94); Platelet Count 190 K/mm3 (140-440); Red Blood Count 4.29 M/mm3 (3.65-5.03); Red Cell Distribution Width 14.2 % (13.2-15.2); White Blood Count 14.7 K/mm3 (4.5-11.0)
[2017-05-15 20:20] LABS: Anion Gap 15 mmol/L; BUN/Creatinine Ratio 11; Blood Urea Nitrogen 11 mg/dL (9-20); Calcium 8.7 mg/dL (8.4-10.2); Carbon Dioxide 25 mmol/L (22-30); Chloride 100.7 mmol/L (98-107); Glucose 163 mg/dL (75-100); Potassium 3.8 mmol/L (3.6-5.0); Sodium 137 mmol/L (137-145)
[2017-05-15 20:41] LABS: Urine Drugs of Abuse Note Disclamer
[2017-05-15 20:47] LABS: Bilirubin,Urine NEG (Negative); Blood,Urine NEG (Negative); Ketones,Urine NEG (Negative); Leukocyte Esterase,Urine NEG (Negative); Nitrite,Urine NEG (Negative); Protein,Urine <15 mg/dL mg/dL (Negative); Urobilinogen,Urine < 2.0 mg/dL (<2.0)
--- NOTE | 2017-05-15 21:49 | Emergency Department Report ---
ED Psych HPI - General Chief Complaint: Psych Stated Complaint: HOMICIDAL,SUICIDAL Time Seen by Provider: 05/15/17 21:44 Source: patient Mode of arrival: Ambulatory Limitations: No Limitations - History of Present Illness MD Complaint: suicidal ideation, feels depressed -: Sudden Associated Psychiatric Symptoms: depression, suicidal ideation, homicidal ideation, racing thoughts Quality: constant, getting worse Improves With: medication, therapy Worsens With: other (stress) Context: significant life stressor Associated Symptoms: nausea, vomiting, other (body aches) Treatments Prior to Arrival: placed on mental he If Self Harm: admits thoughts of, has plan - Related Data Home Medications Medication Instructions Recorded Confirmed Last Taken FLUoxetine HCL [PROzac] 40 mg PO QAM 02/11/17 05/15/17 05/15/17 busPIRone [Buspar] 10 mg PO BID 02/11/17 05/15/17 05/15/17 Thioridazine [Mellaril] 50 mg PO BID 05/15/17 05/15/17 05/15/17 Previous Rx's Medication Instructions Recorded Last Taken Type [place] Carbonate [Eskalith] 300 mg PO BID #90 capsule 02/12/14 05/15/17 Rx Allergies Allergy/AdvReac Type Severity Reaction Status Date / Time lactase [From Dairy Aid] Allergy Nausea Verified 07/12/14 19:21 risperidone [From Risperdal] AdvReac Nausea Verified 05/15/17 18:44 ED Review of Systems ROS: Stated complaint: HOMICIDAL,SUICIDAL Other details as noted in HPI Comment: All other systems reviewed and negative Constitutional: see HPI, other (body aches) Eyes: as per HPI ENT: as per HPI Respiratory: no symptoms reported Cardiovascular: as per HPI Endocrine: no symptoms reported, see HPI Gastrointestinal: as per HPI Genitourinary: as per HPI Musculoskeletal: as per HPI Skin: as per HPI Neurological: as per HPI Psychiatric: as per HPI, anxiety, depression, homicidal thoughts, suicidal thoughts Hematological/Lymphatic: as per HPI ED Past Medical Hx - Past Medical History Previous Medical History?: Yes Hx Psychiatric Treatment: Yes (Bipolar depression, Chronic anxiety, Schizo affective) Additional medical history: bronchitis - Surgical History Past Surgical History?: No - Social History Smoking Status: Current Every Day Smoker Substance Use Type: Alcohol - Medications Home Medications: Home Medications Medication Instructions Recorded Confirmed Last Taken Type [place] Carbonate [Eskalith] 300 mg PO BID #90 capsule 02/12/14 05/15/17 Rx FLUoxetine HCL [PROzac] 40 mg PO QAM 02/11/17 05/15/17 05/15/17 History busPIRone [Buspar] 10 mg PO BID 02/11/17 05/15/17 05/15/17 History Thioridazine [Mellaril] 50 mg PO BID 05/15/17 05/15/17 05/15/17 History ED Physical Exam - General Limitations: No Limitations General appearance: alert, in no apparent distress - Head Head exam: Present: atraumatic, normocephalic - Eye Eye exam: Present: normal appearance - ENT ENT exam: Present: mucous membranes moist - Neck Neck exam: Present: normal inspection - Respiratory Respiratory exam: Present: normal lung sounds bilaterally. Absent: respiratory distress - Cardiovascular Cardiovascular Exam: Present: regular rate, normal rhythm. Absent: systolic murmur, diastolic murmur, rubs, gallop - GI/Abdominal GI/Abdominal exam: Present: soft, normal bowel sounds - Rectal Rectal exam: Present: deferred - Extremities Exam Extremities exam: Present: normal inspection - Back Exam Back exam: Present: normal inspection - Neurological Exam Neurological exam: Present: alert, oriented X3 - Psychiatric Psychiatric exam: Present: normal affect, normal mood - Skin Skin exam: Present: warm, dry, intact, normal color. Absent: rash ED Course Vital Signs 05/15/17 18:45 Temperature 98.7 F Pulse Rate 79 Respiratory 18 Rate Blood Pressure 103/64 O2 Sat by Pulse 99 Oximetry ED Medical Decision Making - Lab Data Result diagrams: 05/15/17 20:00 05/15/17 20:00 - Medical Decision Making Due to suicidal ideations a 1013 was signed and psych evaluation ordered. Patient will be awaiting admission to psych inpatient unit - Differential Diagnosis si, depression. Critical care attestation.: If time is entered above; I have spent that time in minutes in the direct care of this critically ill patient, excluding procedure time. ED Disposition Clinical Impression: Bipolar disorder, Suicidal ideations, Depression, Paranoid Disposition: [id number]/TX-[id number] PSY HOSP/PSY UNIT Is pt being admited?: No Does the pt Need Aspirin: No Condition: Fair Additional Instructions: Patient medically cleared and can be DC'd to inpatient psych facility. Referrals: PRIMARY CARE, [Primary Care Provider] - 3-5 Days Time of Disposition: 00:46 (1013 signed)
--- NOTE | 2017-05-16 12:38 | Consultation ---
History of Present Illness - Reason for Consult Consult date: 05/16/17 Reason for consult: Mental Health Evaluation Requesting physician: HOUSTON BLACKWELL III - Chief Complaint Chief complaint: "I am tired of my life" - History of Present Psychiatric Illness 31 y.o. AA male presenting to [facility] for SI's. This patient is known to me. Today the patient is calm, cooperative, but paranoid during the assessment. He stated being tired of life, because he want to move with his mother out of state. He stated that he can't move yet, because of his disability not being active at this time. During the interview, the patient held his head under the bed sheets , possibly responding to some type of stimuli. He stated that he felt like "people" are always following him and causing him harm. He stated not wanting to live with all his current life stressors. He stated having a "hard life." He denies having a suicide plan. He denies sleep disturbance and a poor appetite. He denies HI's and AVH's. He denies recreational drug use and alcohol consumption (etoh). Medications and Allergies Allergies Allergy/AdvReac Type Severity Reaction Status Date / Time lactase [From Dairy Aid] Allergy Nausea Verified 07/12/14 19:21 risperidone [From Risperdal] AdvReac Nausea Verified 05/15/17 18:44 Home Medications Medication Instructions Recorded Confirmed Last Taken Type [place] Carbonate [Eskalith] 300 mg PO BID #90 capsule 02/12/14 05/15/17 Rx FLUoxetine HCL [PROzac] 40 mg PO QAM 02/11/17 05/15/17 05/15/17 History busPIRone [Buspar] 10 mg PO BID 02/11/17 05/15/17 05/15/17 History Thioridazine [Mellaril] 50 mg PO BID 05/15/17 05/15/17 05/15/17 History Past psychiatric history - Past Medical History Past Medical History: No medical history Past Surgical History: No surgical history - past Psychiatric treatment and history Psych: Bipolar, Schizophrenia psychiatric treatment history: Multiple inpatient psy settings. Denies a fam psy setting. - Social History Social history: other (GED, resides at a [facility]) Mental Status Exam - Vital signs Last Vital Signs Temp 98.7 F 05/15/17 18:45 Pulse 79 05/15/17 18:45 Resp 18 05/16/17 11:45 BP 103/64 05/15/17 18:45 Pulse Ox 99 05/16/17 11:45 - Exam Narrative exam: MSE: Appearance: calm, cooperative Behavior: regular eye contact Speech: low rate and tone Mood: dysphoric Affect: labile Thought Process: circumstantial Thought Content: denies SI's and AVH's, paranoid Motor Activity: ambulatory Cognition: A/Ox 3 Insight: poor Judgment: poor Results Result Diagrams: 05/15/17 20:00 05/15/17 20:00 Abnormal lab results 05/15/17 05/15/17 Range/Units 20:00 20:00 WBC 14.7 H (4.5-11.0) K/mm3 Seg Neutrophils # 9.9 H (1.8-7.7) K/mm3 Glucose 163 H (75-100) mg/dL All other labs normal. Assessment and Plan Assessment and plan: Impression: Schizoaffective DO. Today the patient is calm, cooperative, but paranoid during the assessment. Patient endorses SI's and experiencing paranoia. DDx: R/O MDD Recommendation/Plan: Continue 1013 with placement to inpatient psy services. Start [place] 300 mg BID for mood, Seroquel 200 mg PO HS for mood/psychosis. and Buspar 10 mg PO BID for anxeity. Discussed possible metabolic side effects of Seroquel with patient. Patient was advised of possible QTC prolongation taking [place]/Seroquel. Per the patient, no cardiac abnormalities to report.
[2017-05-16] MEDS: BUSPAR PO SCH ×2 (17:01→22:05)
[2017-05-16] MEDS ORDERED: BUSPAR ONE (20:42)
[2017-05-16] MEDS: ESKALITH PO SCH (22:00)
[2017-05-17] MEDS: ESKALITH PO SCH ×2 (10:18→22:18)
[2017-05-17] MEDS: BUSPAR PO SCH ×2 (11:05→22:17)
--- NOTE | 2017-05-17 14:26 | Progress Note ---
Subjective - Reason for Consult Consult date: 05/17/17 Reason for consult: Psychiatry Follow-up - Chief Complaint Chief complaint: "When can I leave" 31 y.o. AA male presenting to [facility] for SI's. This patient is known to me. Today the patient is calm and cooperative during the assessment. He denies being paranoid. He is adamant about wanting to move with his mother who resides out of town. He denies SI/HI's and AVH's. He denies any side effects of medications. Mental Status Exam - Vital signs Last Vital Signs Temp 98.6 F 05/16/17 22:00 Pulse 63 05/16/17 22:00 Resp 18 05/17/17 12:35 BP 102/51 05/16/17 22:00 Pulse Ox 98 05/17/17 12:35 - Exam Narrative exam: MSE: Appearance: calm, cooperative Behavior: regular eye contact Speech: low rate and tone Mood: "better" Affect: labile Thought Process: circumstantial Thought Content: denies HI/SI's and AVH's Motor Activity: ambulatory Cognition: A/Ox 3 Insight: variable Judgment: variable Assessment and Plan Impression: Schizoaffective DO. Today the patient is calm and cooperative during the assessment. DDx: R/O MDD Recommendation/Plan: Continue 1013 with placement pending at [facility]. Continue [place] 300 mg BID for mood, Seroquel 200 mg PO HS for mood/psychosis. and Buspar 10 mg PO BID for anxeity. Discussed possible metabolic side effects of Seroquel with patient. Patient was advised of possible QTC prolongation taking [place]/Seroquel. Per the patient, no cardiac abnormalities to report.
[2017-05-18 09:56] VITALS: BP 116/63
[2017-05-18] MEDS: BUSPAR PO SCH (10:00)
[2017-05-18] MEDS: ESKALITH PO SCH (10:00)
--- NOTE | 2017-05-18 11:40 | Progress Note ---
Subjective - Reason for Consult Consult date: 05/18/17 Reason for consult: Psychiatry Follow-up - Chief Complaint Chief complaint: "Hello" 31 y.o. AA male presenting to [facility] for SI's. This patient is known to me. Today the patient is calm and cooperative during the assessment. He is adamant about wanting to move with his mother. He stated that a change would help him with his "life stressors." He denies SI/HI's and AVH's. He denies any side effects of medications. Mental Status Exam - Vital signs Last Vital Signs Temp 98.1 F 05/18/17 09:54 Pulse 66 05/18/17 09:54 Resp 18 05/18/17 09:54 BP 116/63 05/18/17 09:54 Pulse Ox 100 05/17/17 15:04 - Exam Narrative exam: MSE: Appearance: calm, cooperative Behavior: regular eye contact Speech: low rate and tone Mood: "okay" Affect: labile Thought Process: circumstantial Thought Content: denies HI/SI's and AVH's Motor Activity: ambulatory Cognition: A/Ox 3 Insight: variable Judgment: variable Assessment and Plan Impression: Schizoaffective DO. Today the patient is calm and cooperative during the assessment. DDx: R/O MDD Recommendation/Plan: Continue 1013 with placement to [facility], pending transport time. Continue [place] 300 mg BID for mood, Seroquel 200 mg PO HS for mood/psychosis. and Buspar 10 mg PO BID for anxeity. Discussed possible metabolic side effects of Seroquel with patient. Patient was advised of possible QTC prolongation taking [place]/Seroquel. Per the patient, no cardiac abnormalities to report.
== END 2017-05-18 14:14 ==
LOC: EEVIPCON 18:24 → ED 18:24
DX: F31.9 Bipolar disorder, unspecified (principal); F20.9 Schizophrenia, unspecified; F17.210 Nicotine dependence, cigarettes, uncomplicated; Z88.8 Allergy status to other drugs, medicaments and biological substances; Z91.011 Allergy to milk products
CPT/HCPCS: 36415; 80048; 80178; 80307; 81001; 85025; 99285; G0480; 80320

== ENCOUNTER 2017-07-23 14:07 | Emergency (ER) | payer SELFPAY ==
[2017-07-23 15:05] LABS: Basophils # (Auto) 0.1 K/mm3 (0.0-0.1); Basophils % (Auto) 0.9 % (0.0-1.8); Eosinophils # (Auto) 0.1 K/mm3 (0.0-0.4); Hematocrit 51.6 % (35.5-45.6); Hemoglobin 17.2 gm/dl (11.8-15.2); Lymphocytes # (Auto) 2.6 K/mm3 (1.2-5.4); Lymphocytes % (Auto) 20.9 % (13.4-35.0); Mean Corpuscular HGB Conc 33 % (32-34); Mean Corpuscular Hemoglobin 31 pg (28-32); Mean Corpuscular Volume 93 fl (84-94); Monocytes # (Auto) 0.8 K/mm3 (0.0-0.8); Monocytes % (Auto) 6.2 % (0.0-7.3); Platelet Count 219 K/mm3 (140-440); Red Blood Count 5.53 M/mm3 (3.65-5.03); Red Cell Distribution Width 13.2 % (13.2-15.2)
[2017-07-23 15:21] LABS: BUN/Creatinine Ratio 11; Blood Urea Nitrogen 12 mg/dL (9-20); Calcium 9.1 mg/dL (8.4-10.2); Hemolysis Index 13
[2017-07-23 17:23] LABS: Bilirubin,Urine NEG (Negative); Blood,Urine NEG (Negative); Color,Urine Yellow (Yellow); Mucus,Urine 3+ /HPF; Nitrite,Urine NEG (Negative)
[2017-07-23 17:36] LABS: Amphetamine Screen,Urine PRESUMPTIVE NEGATIVE; Benzodiazepines Screen,Urine PRESUMPTIVE NEGATIVE; Cannabinoid Screen,Urine PRESUMPTIVE NEGATIVE; Cocaine Screen,Urine PRESUMPTIVE NEGATIVE; Methadone Screen,Urine PRESUMPTIVE NEGATIVE; Opiate Screen,Urine PRESUMPTIVE NEGATIVE
--- NOTE | 2017-07-23 22:40 | Emergency Department Report ---
ED Psych HPI - General Chief Complaint: Psych Stated Complaint: MENTAL HEALTH EVALUATION Time Seen by Provider: 07/23/17 22:01 Source: patient Mode of arrival: Ambulatory - History of Present Illness Initial Comments: Patient is 31 years old male history of schizophrenia presented today stating that he has been out of his psych medicine, Zoloft 3 months. Patient stated that he feels mentally unstable. He stated that he is very paranoid when he was in [facility]. Patient admitted suicidal thoughts, he stated that he is thinking of running in front of a 18 wheelers. Patient denied any homicidal ideation. No visual or auditory hallucinations. MD Complaint: suicidal ideation -: Gradual Associated Psychiatric Symptoms: depression, suicidal ideation, racing thoughts , delusions History of same: Yes Quality: constant If Self Harm: admits thoughts of, has plan - Related Data Home Medications Medication Instructions Recorded Confirmed Last Taken FLUoxetine HCL [PROzac] 40 mg PO QAM 02/11/17 07/23/17 05/15/17 busPIRone [Buspar] 10 mg PO BID 02/11/17 07/23/17 05/15/17 Thioridazine [Mellaril] 50 mg PO BID 05/15/17 07/23/17 05/15/17 Previous Rx's Medication Instructions Recorded Last Taken Type [place] Carbonate [Eskalith] 300 mg PO BID #90 capsule 02/12/14 05/15/17 Rx Allergies Allergy/AdvReac Type Severity Reaction Status Date / Time lactase [From Dairy Aid] Allergy Nausea Verified 07/23/17 14:26 risperidone [From Risperdal] AdvReac Nausea Verified 07/23/17 14:26 ED Review of Systems ROS: Stated complaint: MENTAL HEALTH EVALUATION Other details as noted in HPI Comment: All other systems reviewed and negative Constitutional: denies: chills, fever Respiratory: denies: cough, orthopnea, shortness of breath, SOB with exertion, SOB at rest, wheezing Cardiovascular: denies: chest pain, palpitations, dyspnea on exertion, orthopnea Gastrointestinal: denies: abdominal pain, nausea, vomiting, diarrhea, constipation, hematemesis, melena, hematochezia Neurological: denies: headache, weakness, numbness, paresthesias, confusion Psychiatric: anxiety, depression, suicidal thoughts. denies: auditory hallucinations, visual hallucinations, homicidal thoughts ED Past Medical Hx - Past Medical History Hx Psychiatric Treatment: Yes (Bipolar depression, Chronic anxiety, Schizo affective) Additional medical history: bronchitis - Surgical History Past Surgical History?: No - Social History Smoking Status: Current Every Day Smoker Substance Use Type: None - Medications Home Medications: Home Medications Medication Instructions Recorded Confirmed Last Taken Type [place] Carbonate [Eskalith] 300 mg PO BID #90 capsule 02/12/14 07/23/17 Rx FLUoxetine HCL [PROzac] 40 mg PO QAM 02/11/17 07/23/17 05/15/17 History busPIRone [Buspar] 10 mg PO BID 02/11/17 07/23/17 05/15/17 History Thioridazine [Mellaril] 50 mg PO BID 05/15/17 07/23/17 05/15/17 History ED Physical Exam - General Limitations: No Limitations General appearance: alert, in no apparent distress - Head Head exam: Present: atraumatic, normocephalic, normal inspection - Eye Eye exam: Present: normal appearance, PERRL - ENT ENT exam: Present: normal exam, normal orophraynx, mucous membranes moist - Neck Neck exam: Present: normal inspection, full ROM. Absent: tenderness, meningismus, lymphadenopathy, thyromegaly - Respiratory Respiratory exam: Present: normal lung sounds bilaterally. Absent: respiratory distress, wheezes, rales, rhonchi, stridor, decreased breath sounds, prolonged expiratory - Cardiovascular Cardiovascular Exam: Present: regular rate, normal rhythm, normal heart sounds - GI/Abdominal GI/Abdominal exam: Present: soft, normal bowel sounds. Absent: distended, tenderness, guarding, rebound, rigid, organomegaly, mass, bruit, pulsatile mass , hernia - Extremities Exam Extremities exam: Present: normal inspection, full ROM, normal capillary refill - Back Exam Back exam: Present: normal inspection, full ROM. Absent: tenderness, CVA tenderness (R), CVA tenderness (L), muscle spasm, paraspinal tenderness, vertebral tenderness - Neurological Exam Neurological exam: Present: alert, oriented X3, CN II-XII intact, normal gait - Psychiatric Psychiatric exam: Present: depressed, suicidal ideation. Absent: agitated, anxious, flat affect, manic, homicidal ideation - Skin Skin exam: Present: warm, intact, normal color. Absent: cyanosis, diaphoretic, erythema, urticaria ED Course Vital Signs 07/23/17 14:26 Temperature 98.5 F Pulse Rate 99 H Respiratory 16 Rate Blood Pressure 110/71 O2 Sat by Pulse 100 Oximetry ED Medical Decision Making - Lab Data Result diagrams: 07/23/17 Unknown 07/23/17 14:31 Critical care attestation.: If time is entered above; I have spent that time in minutes in the direct care of this critically ill patient, excluding procedure time. ED Disposition Clinical Impression: Acute psychosis, Suicidal ideation Disposition: DC/TX-65 PSY HOSP/PSY UNIT Is pt being admited?: No Condition: Stable Referrals: PRIMARY CARE, [Primary Care Provider] - 3-5 Days
--- NOTE | 2017-07-25 14:09 | Consultation ---
History of Present Illness - Reason for Consult Consult date: 07/25/17 Reason for consult: Mental Health Evaluation Requesting physician: DURGA RASHEED - Chief Complaint Chief complaint: "I don't feel right" - History of Present Psychiatric Illness 31 y.o. white male presenting to [facility] because he feels mentally unstable. This patient is known to me. Today the patient is calm and cooperative during the assessment. He stated that he have not taken an antipsychotic medication in months. He stated that his psychiatrist told him to stop taking the medication. He could not elaborate why he was told to stop taking the medication. He stated that his sleep has been erratic and he cannot think "straight." He stated that he feels like something is going to happen to him in a bad way. He stated that he worries often about his future. He stated that he want to be stable. When he was asked about being suicidal/homicidal, he would only deny being homicidal. He stated feeling "depressed lately" and cannot explain why. He denies VH's. He denies recreational drug use and alcohol consumption (etoh). Medications and Allergies Allergies Allergy/AdvReac Type Severity Reaction Status Date / Time fluphenazine enanthate Allergy Swelling Verified 04/06/17 15:15 [From Prolixin] fluphenazine HCl Allergy Swelling Verified 04/06/17 15:15 [From Prolixin] lactase [From Dairy Aid] Allergy Nausea Verified 07/23/17 14:26 risperidone [From Risperdal] AdvReac Nausea Verified 07/23/17 14:26 Home Medications Medication Instructions Recorded Confirmed Last Taken Type [place] Carbonate [Eskalith] 300 mg PO BID #90 capsule 02/12/14 07/23/17 Rx [place] Carbonate [Eskalith] 300 mg PO BID 10/01/16 04/06/17 Unknown History busPIRone [Buspar] 10 mg PO BID 10/01/16 04/06/17 Unknown History FLUoxetine HCL [PROzac] 40 mg PO QAM 02/11/17 07/23/17 05/15/17 History busPIRone [Buspar] 10 mg PO BID 02/11/17 07/23/17 05/15/17 History FLUoxetine HCL [PROzac] 40 mg PO QDAY 04/06/17 04/06/17 Unknown History Thioridazine [Mellaril] 50 mg PO BID 05/15/17 07/23/17 05/15/17 History Past psychiatric history - Past Medical History Past Medical History: other (Bronchitis) Past Surgical History: No surgical history - past Psychiatric treatment and history psychiatric treatment history: Multiple inpatient psy services. Denies a fam psy hx. - Social History Social history: other (Resides at a halfway) Mental Status Exam - Vital signs Last Vital Signs Temp 98.4 F 07/25/17 11:18 Pulse 82 07/25/17 11:18 Resp 18 07/25/17 11:35 BP 96/54 07/25/17 11:18 Pulse Ox 98 07/25/17 11:35 - Exam Narrative exam: MSE: Appearance: calm, cooperative, anxious Behavior: regular eye contact Speech: regular rate and tone, hyper verbal Mood: "depressed" Affect: congruent to mood Thought Process: circumstantial Thought Content: denies HI's and AVH's, paranoid Motor Activity: ambulatory Cognition: A/O x 3 Insight: variable Judgment: variable Results Result Diagrams: 07/23/17 Unknown 07/23/17 14:31 All other labs normal. Assessment and Plan Assessment and plan: Impression: Schizoaffective DO. JIGAR. Today the patient is calm and cooperative during the assessment. Patient cannot confirm or deny SI's. DDx: R/O MDD with psychosis, R/O Bipolar DO Recommendation/Plan: Continue 1013 with placement to inpatient psy services. Start Buspar 10 mg PO BID for anxiety and Seroquel 200 mg PO HS for mood/ psychosis. Will start [place] 300 mg PO BID once his levels results along with a baseline EKG (QTC).
[2017-07-25] MEDS: BUSPAR PO SCH ×2 (17:48→21:55)
[2017-07-25] MEDS ORDERED: BUSPAR ONE (21:10)
[2017-07-26] MEDS: BUSPAR PO SCH (10:55)
--- NOTE | 2017-07-26 13:52 | Progress Note ---
Subjective - Reason for Consult Consult date: 07/26/17 Reason for consult: Psychiatry Follow-up - Chief Complaint Chief complaint: "I feel bad" 31 y.o. white male presenting to [facility] because he feels mentally unstable. This patient is known to me. Today the patient is calm and cooperative during the assessment. The patient admitted to being "suicidal and fearful" when asked. He cannot elaborate why he feels this way. He denies HI's and AVH's. He denies any side effects of his medications. Mental Status Exam - Vital signs Last Vital Signs Temp 98.3 F 07/25/17 22:00 Pulse 82 07/25/17 22:00 Resp 18 07/25/17 22:00 BP 120/78 07/25/17 22:00 Pulse Ox 97 07/25/17 22:00 - Exam Narrative exam: MSE: Appearance: calm, cooperative Behavior: regular eye contact Speech: regular rate and tone Mood: "depressed" Affect: congruent to mood Thought Process: circumstantial Thought Content: denies HI's and AVH's, paranoid Motor Activity: ambulatory Cognition: A/O x 3 Insight: variable Judgment: variable Assessment and Plan Impression: Schizoaffective DO. JIGAR. Today the patient is calm and cooperative during the assessment. Patient endorses SI's. QTC 420 07/26/2017. DDx: R/O MDD with psychosis, R/O Bipolar DO Recommendation/Plan: Continue 1013 with placement to inpatient psy services. Continue Buspar 10 mg PO BID for anxiety and Seroquel 200 mg PO HS for mood/ psychosis. Start [place] 300 mg PO BID for mood. Discussed possible metabolic side effects of Seroquel with patient.
[2017-07-26] MEDS: ESKALITH PO SCH (19:12)
[2017-07-27] MEDS: BUSPAR PO SCH ×3 (00:38→22:30)
[2017-07-27] MEDS: ESKALITH PO SCH ×3 (00:40→22:26)
--- NOTE | 2017-07-27 16:42 | Progress Note ---
Subjective - Reason for Consult Consult date: 07/27/17 Reason for consult: follow up - Chief Complaint Chief complaint: "depressed" 31 y.o. white male presenting to [facility] because he feels mentally unstable. This patient is known to me. Today the patient is calm and cooperative during the assessment. The patient admitted to being suicidal and depressed. He cannot elaborate why he feels this way. He denies HI's and AVH's. He denies any side effects of his medications. Mental Status Exam - Vital signs Last Vital Signs Temp 97 F L 07/27/17 09:54 Pulse 70 07/27/17 09:54 Resp 20 07/27/17 09:54 BP 130/78 07/27/17 09:54 Pulse Ox 100 07/27/17 09:54 - Exam Narrative exam: Appearance: calm, cooperative Behavior: regular eye contact Speech: regular rate and tone Mood: "depressed" Affect: congruent to mood Thought Process: circumstantial Thought Content: denies HI's and AVH's, paranoid Motor Activity: ambulatory Cognition: A/O x 3 Insight: variable Judgment: variable Assessment and Plan Impression: Schizoaffective DO. JIGAR. Today the patient is calm and cooperative during the assessment. Patient endorses SI's. QTC 420 07/26/2017. DDx: R/O MDD with psychosis, R/O Bipolar DO Recommendation/Plan: Continue 1013 with placement to inpatient psy services. Continue Buspar 10 mg PO BID for anxiety and Seroquel 200 mg PO HS for mood/ psychosis. Continue [place] 300 mg PO BID for mood. Discussed possible metabolic side effects of Seroquel with patient.
[2017-07-28 06:59] VITALS: BP 106/44
== END 2017-07-28 07:00 ==
LOC: EEVIPCON 14:07 → ED 14:07
DX: F25.9 Schizoaffective disorder, unspecified (principal); F31.9 Bipolar disorder, unspecified; F41.9 Anxiety disorder, unspecified; F17.200 Nicotine dependence, unspecified, uncomplicated; Z79.899 Other long term (current) drug therapy; Z88.8 Allergy status to other drugs, medicaments and biological substances
CPT/HCPCS: 36415; 80048; 80178; 80307; 81001; 85025; 99285; G0480; 80320

== ENCOUNTER 2017-07-29 17:23 | Emergency (ER) | payer SELFPAY ==
--- NOTE | 2017-07-29 19:09 | Emergency Department Report ---
HPI - General Chief Complaint: Allergic Reaction Time Seen by Provider: 07/29/17 18:56 - HPI HPI: 31-year-old male with a past medical history of schizoaffective disorder, bipolar depression, and chronic anxiety presents to hospital status post dystonic reaction after taking Haldol. Patient is recently here and then transferred to [facility] for suicidal thoughts. Patient was discharged yesterday and received his first dose of Haldol prior to discharge. Patient took a second dose of Haldol today and later developed a dystonic reaction. Head was stuck to the left side and his mouth was closed shut. Patient received Benadryl via EMS in route to the hospital with improvement in symptoms. Patient has had similar dystonic reaction with multiple antipsychotics (See allergies). Patient states he still feels depressed and suicidal and requesting readmission. History of previous overdose on Seroquel. ED Past Medical Hx - Past Medical History Hx Psychiatric Treatment: Yes (Bipolar depression, Chronic anxiety, Schizo affective) Additional medical history: bronchitis - Social History Smoking Status: Current Every Day Smoker - Medications Home Medications: Home Medications Medication Instructions Recorded Confirmed Last Taken Type [place] Carbonate [Eskalith] 300 mg PO BID 10/01/16 07/29/17 Unknown History FLUoxetine HCL [PROzac] 40 mg PO QAM 02/11/17 07/29/17 05/15/17 History busPIRone [Buspar] 10 mg PO BID 02/11/17 07/29/17 05/15/17 History FLUoxetine HCL [PROzac] 40 mg PO QDAY 04/06/17 07/29/17 Unknown History Thioridazine [Mellaril] 50 mg PO BID 05/15/17 07/29/17 05/15/17 History ED Review of Systems ROS: Stated complaint: DYSTONIC REACTION Other details as noted in HPI Comment: All other systems reviewed and negative Other: Constitutional: No fevers chills or weight loss Eyes: No eye pain visual changes or discharge ENT: No ear pain or throat pain Neck: Denies pain Respiratory: Denies cough wheezing shortness of breath Cardiovascular: Denies chest pain, palpitations, syncope GI: Denies abdominal pain, nausea, vomiting, diarrhea : Denies dysuria Musculoskeletal: dystonia prior to arrival Skin: Denies rash, lesions, erythema Neurologic: Denies headache, numbness, weakness Psychiatric: + suicidal thoughts Physical Exam - Physical Exam Vital Signs: Vital Signs 07/29/17 07/29/17 17:42 17:47 Temperature 98.7 F Pulse Rate 97 H Respiratory 14 18 Rate Blood Pressure 105/57 O2 Sat by Pulse 99 Oximetry Physical Exam: General: No limitations, patient is alert in no acute distress Head exam: Atraumatic, normocephalic Eyes exam: Normal appearance ENT: Moist mucous membrane, normal oropharynx Neck exam: Normal inspection, full range of motion, no meningismus nontender Respiratory exam: Clear to auscultation bilateral, no wheezes, rales, crackles Cardiovascular: Normal rate and rhythm, normal heart sounds Abdomen: Soft, nondistended, and nontender, with normal bowel sounds, no rebound, or guarding Extremity: Full range of motion normal inspection no deformity Back: Normal Inspection, full range of motion, no tenderness Neurologic: Alert, oriented x3, cranial nerves intact, no motor or sensory deficit Psychiatric: normal affect, normal mood Skin: Warm, dry, intact ED Course Vital Signs 07/29/17 07/29/17 17:42 17:47 Temperature 98.7 F Pulse Rate 97 H Respiratory 14 18 Rate Blood Pressure 105/57 O2 Sat by Pulse 99 Oximetry ED Medical Decision Making - Lab Data Result diagrams: 07/29/17 20:05 07/29/17 20:05 Lab Results 07/29/17 07/29/17 07/29/17 Range/Units 20:05 20:05 20:05 WBC 9.6 (4.5-11.0) K/mm3 RBC 4.73 (3.65-5.03) M/mm3 Hgb 14.8 (11.8-15.2) gm/dl Hct 43.4 (35.5-45.6) % MCV 92 (84-94) fl MCH 31 (28-32) pg MCHC 34 (32-34) % RDW 13.2 (13.2-15.2) % Plt Count 202 (140-440) K/mm3 Sodium 138 (137-145) mmol/L Potassium 4.7 (3.6-5.0) mmol/L Chloride 100.9 (98-107) mmol/L Carbon Dioxide 26 (22-30) mmol/L Anion Gap 16 mmol/L BUN 11 (9-20) mg/dL Creatinine 0.8 (0.8-1.5) mg/dL Estimated GFR > 60 ml/min BUN/Creatinine Ratio 14 % Glucose 95 (75-100) mg/dL Calcium 9.2 (8.4-10.2) mg/dL Urine Color (Yellow) Urine Turbidity (Clear) Urine pH (5.0-7.0) Ur Specific [place] (1.003-1.030) Urine Protein (Negative) mg/dL Urine Glucose (UA) (Negative) mg/dL Urine Ketones (Negative) mg/dL Urine Blood (Negative) Urine Nitrite (Negative) Urine Bilirubin (Negative) Urine Urobilinogen (<2.0) mg/dL Ur Leukocyte Esterase (Negative) Urine WBC (Auto) (0.0-6.0) /HPF Urine RBC (Auto) (0.0-6.0) /HPF Urine Opiates Screen Urine Methadone Screen Ur Barbiturates Screen Ur Phencyclidine Scrn Ur Amphetamines Screen U Benzodiazepines Scrn Urine Cocaine Screen U Marijuana (THC) Screen Drugs of Abuse Note Plasma/Serum Alcohol < 0.01 (0-0.07) gm% 07/29/17 07/29/17 Range/Units 21:35 21:35 WBC (4.5-11.0) K/mm3 RBC (3.65-5.03) M/mm3 Hgb (11.8-15.2) gm/dl Hct (35.5-45.6) % MCV (84-94) fl MCH (28-32) pg MCHC (32-34) % RDW (13.2-15.2) % Plt Count (140-440) K/mm3 Sodium (137-145) mmol/L Potassium (3.6-5.0) mmol/L Chloride (98-107) mmol/L Carbon Dioxide (22-30) mmol/L Anion Gap mmol/L BUN (9-20) mg/dL Creatinine (0.8-1.5) mg/dL Estimated GFR ml/min BUN/Creatinine Ratio % Glucose (75-100) mg/dL Calcium (8.4-10.2) mg/dL Urine Color Straw (Yellow) Urine Turbidity Clear (Clear) Urine pH 8.0 H (5.0-7.0) Ur Specific [place] 1.011 (1.003-1.030) Urine Protein <15 mg/dl (Negative) mg/dL Urine Glucose (UA) Neg (Negative) mg/dL Urine Ketones Neg (Negative) mg/dL Urine Blood Neg (Negative) Urine Nitrite Neg (Negative) Urine Bilirubin Neg (Negative) Urine Urobilinogen < 2.0 (<2.0) mg/dL Ur Leukocyte Esterase Neg (Negative) Urine WBC (Auto) < 1.0 (0.0-6.0) /HPF Urine RBC (Auto) 1.0 (0.0-6.0) /HPF Urine Opiates Screen Presumptive negative Urine Methadone Screen Presumptive negative Ur Barbiturates Screen Presumptive negative Ur Phencyclidine Scrn Presumptive negative Ur Amphetamines Screen Presumptive negative U Benzodiazepines Scrn Presumptive negative Urine Cocaine Screen Presumptive negative U Marijuana (THC) Screen Presumptive negative Drugs of Abuse Note Disclamer Plasma/Serum Alcohol (0-0.07) gm% - Medical Decision Making Dystonic reaction Improved with Benadryl Patient has similar reaction to multiple antipsychotics Deferred to psychiatrists to determine appropriate medication Suicidal ideation Patient discharged from [facility] for the same Reports recent Seroquel overdose attempt 1013 and transfer forms signed - Differential Diagnosis dystonic reaction, suicidal thoughts, depression Critical Care Time: No Critical care attestation.: If time is entered above; I have spent that time in minutes in the direct care of this critically ill patient, excluding procedure time. ED Disposition Clinical Impression: Acute dystonic reaction due to drugs, Suicidal ideation, Schizoaffective disorder, Medical clearance for psychiatric admission Disposition: DC/65 PSY HOSP/PSY UNIT Is pt being admited?: No Does the pt Need Aspirin: No Condition: Stable Time of Disposition: 00:18 (awaiting acceptance)
[2017-07-29 20:28] LABS: Hematocrit 43.4 % (35.5-45.6); Hemoglobin 14.8 gm/dl (11.8-15.2); Mean Corpuscular HGB Conc 34 % (32-34); Mean Corpuscular Hemoglobin 31 pg (28-32); Mean Corpuscular Volume 92 fl (84-94); Platelet Count 202 K/mm3 (140-440); Red Blood Count 4.73 M/mm3 (3.65-5.03); Red Cell Distribution Width 13.2 % (13.2-15.2)
[2017-07-29 20:49] LABS: BUN/Creatinine Ratio 14; Blood Urea Nitrogen 11 mg/dL (9-20); Calcium 9.2 mg/dL (8.4-10.2); Hemolysis Index 13
[2017-07-29 21:52] LABS: Bilirubin,Urine NEG (Negative); Blood,Urine NEG (Negative); Color,Urine Straw (Yellow); Nitrite,Urine NEG (Negative); Protein,Urine <15 mg/dL mg/dL (Negative); Urobilinogen,Urine < 2.0 mg/dL (<2.0); WBC,Urine < 1.0 /HPF (0.0-6.0)
[2017-07-29 22:00] LABS: Amphetamine Screen,Urine PRESUMPTIVE NEGATIVE; Benzodiazepines Screen,Urine PRESUMPTIVE NEGATIVE; Cannabinoid Screen,Urine PRESUMPTIVE NEGATIVE; Cocaine Screen,Urine PRESUMPTIVE NEGATIVE; Methadone Screen,Urine PRESUMPTIVE NEGATIVE; Opiate Screen,Urine PRESUMPTIVE NEGATIVE
[2017-07-30] MEDS ORDERED: MILK OF MAGNESIA PO PRN (00:21)
[2017-07-30] MEDS ORDERED: ALUM-MAG HYDROX-SIMETH 200-200-20MG/5ML PO PRN (00:21)
[2017-07-30] MEDS ORDERED: TYLENOL PO PRN (00:21)
--- NOTE | 2017-07-30 14:05 | Consultation ---
History of Present Illness - Reason for Consult Consult date: 07/30/17 Reason for consult: Mental Health Evaluation Requesting physician: VANESSA MORRIS - Chief Complaint Chief complaint: "I'm tired of this mess" - History of Present Psychiatric Illness 31-year-old male with a past medical history of schizoaffective disorder and anxiety presenting to [facility] for a status post dystonic reaction after taking Haldol. This patient is known to me. Today the patient is calm and cooperative during the assessment. He stated that he took Haldol after being discharged from [facility] yesterday and experienced a stiff neck and involuntary movement (dystonia). He stated that this experience has exacerbated his depression and SI's. He denies a suicide plan. He stated that he "hate" his life. He stated that he does not have a reason to be alive. He stated every time he get well "mentally", something happens to set him back. He rate his depression/anxiety 7/10, with 10 being the worse. He denies HI's and AVH's. He denies a poor appetite and sleep disturbance. He denies any manic episodes, recreational drug use, and alcohol consumption (etoh). Medications and Allergies Allergies Allergy/AdvReac Type Severity Reaction Status Date / Time fluphenazine enanthate Allergy Swelling Verified 04/06/17 15:15 [From Prolixin] fluphenazine HCl Allergy Swelling Verified 04/06/17 15:15 [From Prolixin] lactase [From Dairy Aid] Allergy Nausea Verified 07/23/17 14:26 haloperidol [From Haldol] AdvReac Severe See Comment Verified 07/30/17 14:02 risperidone [From Risperdal] AdvReac Nausea Verified 07/23/17 14:26 Home Medications Medication Instructions Recorded Confirmed Last Taken Type [place] Carbonate [Eskalith] 300 mg PO BID 10/01/16 07/29/17 Unknown History FLUoxetine HCL [PROzac] 40 mg PO QAM 02/11/17 07/29/17 05/15/17 History busPIRone [Buspar] 10 mg PO BID 02/11/17 07/29/17 05/15/17 History FLUoxetine HCL [PROzac] 40 mg PO QDAY 04/06/17 07/29/17 Unknown History Thioridazine [Mellaril] 50 mg PO BID 05/15/17 07/29/17 05/15/17 History Active Meds: Active Medications Acetaminophen (Tylenol) 650 mg PO Q4HR PRN PRN Reason: Pain MILD(1-3)/Fever >100.5/SAMUEL Al Hydrox/Mg Hydrox/Simethicone (Alum-Mag Hydrox-Simeth [id number]/5ml) 30 ml PO Q4HR PRN PRN Reason: Indigestion Magnesium Hydroxide (Milk Of Magnesia) 30 ml PO Q12HR PRN PRN Reason: Constipation Past psychiatric history - Past Medical History Past Medical History: other (Bronchitis) Past Surgical History: No surgical history - past Psychiatric treatment and history psychiatric treatment history: Multiple inpatient psy settings. Denies a fam psy hx. - Social History Social history: other ([place] at [place] [facility] Mental Status Exam - Vital signs Last Vital Signs Temp 97.6 F 07/30/17 08:11 Pulse 68 07/30/17 08:11 Resp 20 07/30/17 08:13 BP 107/61 07/30/17 08:11 Pulse Ox 97 07/30/17 08:13 - Exam Narrative exam: MSE: Appearance: cooperative, anxious Behavior: regular eye contact Speech: regular rate and tone Mood: "depressed" withdrawn Affect: congruent to mood Thought Process: circumstantial Thought Content: denies HI's and AVH's Motor Activity: ambulatory Cognition: A/O x 3 Insight: variable Judgment: variable Results Result Diagrams: 07/29/17 20:05 07/29/17 20:05 Abnormal lab results 07/29/17 Range/Units 21:35 Urine pH 8.0 H (5.0-7.0) All other labs normal. Assessment and Plan Assessment and plan: Impression: Schizoaffective DO. JIGAR. Today the patient is calm and cooperative during the assessment. Patient endorses SI's. QTC 432 07/30/2017. DDx: R/O MDD, R/O Bipolar DO Recommendation/Plan: Continue 1013 with placement to inpatient psy services. Start Buspar 10 mg PO BID for anxiety, Seroquel 100 mg PO HS for mood/psychosis , Cogentin 0.5 mg PO HS for EPS prevention, and [place] 300 mg PO BID for mood. Discussed possible metabolic side effects of Seroquel with patient. Discussed generalized coping skills with patient.
[2017-07-30] MEDS: BUSPAR PO SCH (17:32)
[2017-07-31] MEDS: BUSPAR PO SCH ×3 (00:37→22:03)
[2017-07-31] MEDS: COGENTIN PO SCH ×2 (00:37→22:03)
[2017-07-31] MEDS: ESKALITH PO SCH ×3 (00:37→22:03)
--- NOTE | 2017-08-01 10:27 | Progress Note ---
Subjective - Reason for Consult Consult date: 08/01/17 Reason for consult: Mental Health Evaluation - Chief Complaint Chief complaint: "I feel much better" 31-year-old male with a past medical history of schizoaffective disorder and anxiety presenting to [facility] for a status post dystonic reaction after taking Haldol. This patient is known to me. Today the patient is calm and cooperative during the assessment. He stated that he would like to be discharged and feels much better. He stated that he has a reason to "live and want to live." He denies SI/HI's and AVH's. He denies any side effects of his medications. Mental Status Exam - Vital signs Last Vital Signs Temp 97.6 F 07/31/17 09:25 Pulse 66 07/31/17 09:25 Resp 16 07/31/17 09:25 BP 102/55 07/31/17 09:25 Pulse Ox 98 07/31/17 09:25 - Exam Narrative exam: MSE: Appearance: calm, cooperative Behavior: regular eye contact Speech: regular rate and tone Mood: "okay" Affect: congruent to mood Thought Process: logical Thought Content: denies SI/HI's and AVH's Motor Activity: ambulatory Cognition: A/O x 3 Insight: fair Judgment: fair Assessment and Plan Impression: Schizoaffective DO. JIGAR. Today the patient is calm and cooperative during the assessment. QTC 432 07/30/2017. Patient is no threat to self. DDx: R/O MDD, R/O Bipolar DO Recommendation/Plan: Rescind 1013. Continue Buspar 10 mg PO BID for anxiety, Seroquel 100 mg PO HS for mood/psychosis, Cogentin 0.5 mg PO HS for EPS prevention, and [place] 300 mg PO BID for mood. Discussed possible metabolic side effects of Seroquel with patient. Discussed generalized coping skills with patient. Patient can follow up with [facility] when discharged.
[2017-08-01] MEDS: ESKALITH PO SCH (12:16)
[2017-08-01] MEDS: BUSPAR PO SCH (12:16)
--- NOTE | 2017-08-01 15:48 | Emergency Department Report ---
Blank Doc - Documentation Documentation: I was asked by the nurse to evaluate Mr. Pace for possible discharge after patient nothing by mouth by psychiatric team to be discharged and 1013 to be rescinded. I examined the patient, patient is alert and oriented 3 in no acute distress. Patient denied any suicidal or homicidal ideation. No dietary or visual hallucination. Patient will follow up as an outpatient.
[2017-08-01 16:23] VITALS: BP 101/62
== END 2017-08-01 16:34 | disposition home or self-care (01) ==
LOC: EEVIPCON 17:23 → ED 17:23
DX: G24.02 Drug induced acute dystonia (principal); T43.4X5A Adverse effect of butyrophenone and thiothixene neuroleptics, initial encounter; F25.9 Schizoaffective disorder, unspecified; F41.1 Generalized anxiety disorder; F31.9 Bipolar disorder, unspecified; F17.200 Nicotine dependence, unspecified, uncomplicated; Z79.899 Other long term (current) drug therapy; Z88.8 Allergy status to other drugs, medicaments and biological substances; Y92.89 Other specified places as the place of occurrence of the external cause
CPT/HCPCS: 36415; 80048; 80178; 80307; 81001; 85027; 99284; G0480; 80320; 99285

== ENCOUNTER 2017-08-15 20:53 | Emergency (ER) | payer OTHER ==
[2017-08-15 21:27] LABS: Hematocrit 42.6 % (35.5-45.6); Hemoglobin 14.4 gm/dl (11.8-15.2); Mean Corpuscular HGB Conc 34 % (32-34); Mean Corpuscular Hemoglobin 31 pg (28-32); Mean Corpuscular Volume 91 fl (84-94); Platelet Count 223 K/mm3 (140-440); Red Blood Count 4.67 M/mm3 (3.65-5.03); Red Cell Distribution Width 13.4 % (13.2-15.2)
[2017-08-15 21:42] LABS: BUN/Creatinine Ratio 14; Blood Urea Nitrogen 11 mg/dL (9-20); Calcium 8.6 mg/dL (8.4-10.2); Hemolysis Index 62
[2017-08-15 21:59] LABS: Bilirubin,Urine NEG (Negative); Blood,Urine NEG (Negative); Color,Urine Yellow (Yellow); Mucus,Urine FEW /HPF; Nitrite,Urine NEG (Negative); Protein,Urine <15 mg/dL mg/dL (Negative); RBC,Urine < 1.0 /HPF (0.0-6.0); Urobilinogen,Urine < 2.0 mg/dL (<2.0)
[2017-08-15 22:07] LABS: Amphetamine Screen,Urine PRESUMPTIVE NEGATIVE; Benzodiazepines Screen,Urine PRESUMPTIVE NEGATIVE; Cocaine Screen,Urine PRESUMPTIVE NEGATIVE; Methadone Screen,Urine PRESUMPTIVE NEGATIVE; Opiate Screen,Urine PRESUMPTIVE NEGATIVE
[2017-08-15 22:26] LABS: Cannabinoid Screen,Urine PRESUMPTIVE POSITIVE
[2017-08-15 22:32] LABS: Anisocytosis 1+; Eosinophils % (Manual) 0 % (0.0-4.3); Platelet Estimate Consistent w Auto; Total Cells Counted 100
--- NOTE | 2017-08-16 | Emergency Department Report ---
HPI - General Chief Complaint: Psych Time Seen by Provider: 08/15/17 23:37 - HPI HPI: The patient is a 31-year-old male who presents for evaluation of mental health. The patient reports 2 days of constant severe sadness and depression, associated with suicidal ideations. He states that he has not developed a plan to complete suicide. The patient denies fever, headache, unexplained weight loss or weight gain, heat or cold intolerance, skin, hair, or nail changes, neuro deficits, homicidal ideations, or auditory or visual hallucinations. ED Past Medical Hx - Past Medical History Previous Medical History?: No Hx Psychiatric Treatment: Yes (Bipolar depression, Chronic anxiety, Schizo affective) Additional medical history: bronchitis - Surgical History Past Surgical History?: No - Social History Smoking Status: Current Every Day Smoker Substance Use Type: Alcohol - Medications Home Medications: Home Medications Medication Instructions Recorded Confirmed Last Taken Type [place] Carbonate [Eskalith] 300 mg PO BID 10/01/16 08/15/17 Unknown History FLUoxetine HCL [PROzac] 40 mg PO QAM 02/11/17 08/15/17 05/15/17 History busPIRone [Buspar] 10 mg PO BID 02/11/17 08/15/17 05/15/17 History FLUoxetine HCL [PROzac] 40 mg PO QDAY 04/06/17 08/15/17 Unknown History Thioridazine [Mellaril] 50 mg PO BID 05/15/17 08/15/17 05/15/17 History ED Review of Systems ROS: Stated complaint: SI, DEPRESSION Other details as noted in HPI Constitutional: denies: fever ENT: denies: throat or neck pain Respiratory: denies: cough, shortness of breath Cardiovascular: denies: chest pain Endocrine: denies unexplained weight loss or gain Gastrointestinal: denies: abdominal pain, nausea Genitourinary: denies: dysuria Musculoskeletal: denies: leg swelling Skin: denies: rash Neurological: denies: headache Hematological/Lymphatic: denies: easy bleeding or easy bruising Psych: reports sadness or hopelessness Physical Exam - Physical Exam Vital Signs: Vital Signs 08/15/17 20:59 Temperature 97.8 F Pulse Rate 99 H Respiratory 16 Rate Blood Pressure 110/62 O2 Sat by Pulse 96 Oximetry Physical Exam: General: well-nourished, well-developed, no acute distress Head: Normocephalic, atraumatic Eyes: normal sclera ENT: Mucous membranes are pink and moist Neck: trachea midline, neck supple, No neck stiffness, no cervical adenopathy Respiratory: Breath sounds equal bilaterally, no wheezing, rales, or rhonchi Cardio: S1 and S2 present, no murmurs, rubs, gallops, capillary refill is brisk Abdomen: Normoactive bowel sounds, soft abdomen, no rigidity, no guarding or rebound tenderness Musc: No pitting edema Skin: No rash Neuro: no facial drooping, normal speech Psych: Flat affect, depressed mood, poor insight, positive suicidal ideation ED Course Vital Signs 08/15/17 20:59 Temperature 97.8 F Pulse Rate 99 H Respiratory 16 Rate Blood Pressure 110/62 O2 Sat by Pulse 96 Oximetry ED Medical Decision Making - Lab Data Result diagrams: 08/15/17 21:06 08/15/17 21:06 - Medical Decision Making The patient was seen and examined by myself. The patient is placed on a medical practice assistant and continuous pulse ox. On initial evaluation, the patient was found to be in no distress. Labs are obtained. Lab results only exhibited mildly elevated nonspecific WBC of 14, and otherwise are grossly unremarkable. The patient is medically clear. Mental health is consulted. Mental health evaluates the patient and agrees that the patient is at risk of harm to self. A 1013 is completed. The patient will be admitted to a psychiatric facility once bed placement is obtained. Critical care attestation.: If time is entered above; I have spent that time in minutes in the direct care of this critically ill patient, excluding procedure time. ED Disposition Clinical Impression: Suicidal ideation, Dehydration, mild Disposition: DC/[place]-65 PSY HOSP/PSY UNIT Is pt being admited?: No Does the pt Need Aspirin: No Condition: Fair Referrals: PRIMARY CARE, [Primary Care Provider] - 3-5 Days Time of Disposition: 23:59
[2017-08-16] MEDS ORDERED: NACL 0.9% 1000 ML 1,000 ML IV ONE (03:27)
[2017-08-16] MEDS ORDERED: ALUM-MAG HYDROX-SIMETH 200-200-20MG/5ML PO PRN (03:28)
[2017-08-16] MEDS ORDERED: MILK OF MAGNESIA PO PRN (03:28)
[2017-08-16] MEDS ORDERED: TYLENOL PO PRN (03:28)
--- NOTE | 2017-08-16 13:43 | Consultation ---
History of Present Illness - Reason for Consult Consult date: 08/16/17 Reason for consult: Mental Health Evaluation Requesting physician: CARINA RYAMUNDO - Chief Complaint Chief complaint: "I am depressed" - History of Present Psychiatric Illness The patient is a 31-year-old male who presents for evaluation of mental health. This patient is known to me. Today the patient is calm and cooperative, but anxious during the assessment. He stated being depressed about his life and have no idea what to do. He could not elaborate why he feels this way. He denies hearing voices now, but stated they we active a couple days ago. He could not confirm or deny SI's. He stated having erratic sleep for several days , but denies a poor appetite. He denies HI's and AVH's. He denies recreational drug use, but he is positive for marijuana. He denies alcohol consumption (etoh) . Medications and Allergies Allergies Allergy/AdvReac Type Severity Reaction Status Date / Time fluphenazine enanthate Allergy Swelling Verified 04/06/17 15:15 [From Prolixin] fluphenazine HCl Allergy Swelling Verified 04/06/17 15:15 [From Prolixin] lactase [From Dairy Aid] Allergy Nausea Verified 07/23/17 14:26 haloperidol [From Haldol] AdvReac Severe See Comment Verified 07/30/17 14:02 risperidone [From Risperdal] AdvReac Nausea Verified 07/23/17 14:26 Home Medications Medication Instructions Recorded Confirmed Last Taken Type [place] Carbonate [Eskalith] 300 mg PO BID 10/01/16 08/15/17 Unknown History FLUoxetine HCL [PROzac] 40 mg PO QAM 02/11/17 08/15/17 05/15/17 History busPIRone [Buspar] 10 mg PO BID 02/11/17 08/15/17 05/15/17 History FLUoxetine HCL [PROzac] 40 mg PO QDAY 04/06/17 08/15/17 Unknown History Thioridazine [Mellaril] 50 mg PO BID 05/15/17 08/15/17 05/15/17 History Active Meds: Active Medications Acetaminophen (Tylenol) 650 mg PO Q4HR PRN PRN Reason: Pain MILD(1-3)/Fever >100.5/SAMUEL Al Hydrox/Mg Hydrox/Simethicone (Alum-Mag Hydrox-Simeth [phone]/5ml) 30 ml PO Q4HR PRN PRN Reason: Indigestion Magnesium Hydroxide (Milk Of Magnesia) 30 ml PO Q12HR PRN PRN Reason: Constipation Past psychiatric history - Past Medical History Past Medical History: No medical history Past Surgical History: No surgical history - past Psychiatric treatment and history psychiatric treatment history: Several inpatient psy setting. Denies a fam psy hx. - Social History Social history: other (Reside at a care home) Mental Status Exam - Vital signs Last Vital Signs Temp 98.6 F 08/16/17 09:00 Pulse 81 08/16/17 09:00 Resp 18 08/16/17 09:00 BP 94/55 08/16/17 09:00 Pulse Ox 98 08/16/17 09:00 - Exam Narrative exam: MSE: Appearance: calm, cooperative Behavior: regular eye contact Speech: regular rate and tone Mood: "depressed" withdrawn Affect: congruent to mood Thought Process: circumstantial Thought Content: denies HI's and AVH's, he cannot confirm or deny SIs Motor Activity: ambulatory Cognition: A/O x 3 Insight: variable Judgment: variable Results Result Diagrams: 08/15/17 21:06 08/15/17 21:06 Abnormal lab results 08/15/17 08/15/17 08/15/17 Range/Units 21:06 21:06 21:06 WBC 14.2 H (4.5-11.0) K/mm3 Seg Neuts % (Manual) 78.0 H (40.0-70.0) % Lymphocytes % (Manual) 13.0 L (13.4-35.0) % Seg Neutrophils # Man 11.1 H (1.8-7.7) K/mm3 Monocytes # (Manual) 0.9 H (0.0-0.8) K/mm3 Glucose 117 H (75-100) mg/dL Salicylates < 0.3 L (2.8-20.0) mg/dL All other labs normal. Assessment and Plan Assessment and plan: Impression: Schizoaffective DO. JIGAR. Cannabis Use DO. Today the patient is calm and cooperative, but anxious during the assessment. Patient endorses SI's. DDx: R/O MDD, R/O Bipolar DO Recommendation/Plan: Continue 1013 with placement to inpatient psy services. Start Buspar 10 mg PO BID for anxiety, Zyprexa 5 mg PO HS for mood/psychosis, Cogentin 0.5 mg PO HS for EPS prevention, and [place] 300 mg PO BID for mood. Discussed possible metabolic side effects of Zyprexa with patient. Discussed generalized coping skills with patient.
[2017-08-16] MEDS: BUSPAR PO SCH ×2 (19:15→21:58)
[2017-08-16] MEDS: COGENTIN PO SCH (21:58)
[2017-08-16] MEDS: ESKALITH PO SCH (21:58)
[2017-08-17] MEDS: ESKALITH PO SCH ×2 (13:47→22:16)
[2017-08-17] MEDS: BUSPAR PO SCH ×2 (14:03→22:15)
--- NOTE | 2017-08-17 15:52 | Progress Note ---
Subjective - Reason for Consult Consult date: 08/17/17 Reason for consult: follow up - Chief Complaint Chief complaint: "I am depressed" late entry due to meditech error The patient is a 31-year-old male who presents for evaluation of mental health. This patient is known to me. Today the patient is calm and cooperative, but anxious during the assessment. He stated being depressed about his life and have no idea what to do. He reports he slipped up and used marijuana and alcohol because he felt suicidal. He states he used those substances instead of killing himself. He is afraid of going to penitentiary. He has several months left on felony probation. He reports being in [place] without support and is depressed by this. He continues to report suicidal ideation. He reports non command auditory hallucinations. Sleep and appetite are erratic. No medication side effects reported. Mental Status Exam - Vital signs Last Vital Signs Temp 98.2 F 08/16/17 19:00 Pulse 75 08/16/17 19:00 Resp 18 08/16/17 19:00 BP 92/50 08/16/17 19:00 Pulse Ox 96 08/16/17 19:00 - Exam Narrative exam: MSE: Appearance: calm, cooperative Behavior: regular eye contact Speech: regular rate and tone Mood: "depressed" withdrawn Affect: congruent to mood Thought Process: linear Thought Content: denies HI's. AH, non command. SI present Motor Activity: ambulatory Cognition: A/O x 3 Insight: variable Judgment: variable Assessment and Plan Impression: Schizoaffective DO. JIGAR. Cannabis Use DO. Today the patient is calm and cooperative, but anxious during the assessment. Patient endorses SI's. DDx: R/O MDD, R/O Bipolar DO Recommendation/Plan: Continue 1013 with placement to inpatient psy services. Continue Buspar 10 mg PO BID for anxiety, Zyprexa 5 mg PO HS for mood/psychosis , Cogentin 0.5 mg PO HS for EPS prevention, and [place] 300 mg PO BID for mood.
[2017-08-17] MEDS: COGENTIN PO SCH (22:10)
[2017-08-18] MEDS ORDERED: BUSPAR ONE (10:34)
[2017-08-18] MEDS: BUSPAR PO SCH ×2 (10:46→22:30)
[2017-08-18] MEDS: ESKALITH PO SCH ×2 (10:46→22:30)
--- NOTE | 2017-08-18 16:26 | Progress Note ---
Subjective - Reason for Consult Consult date: 08/18/17 Reason for consult: follow up - Chief Complaint Chief complaint: "I'm not doing good today." The patient is a 31-year-old male who presented for evaluation of mental health. This patient is known to me. Today the patient is calm and cooperative, but anxious during the assessment. He stated being depressed about his life and have no idea what to do. He reports he slipped up and used marijuana and alcohol because he felt suicidal. He states he used those substances instead of killing himself. He is afraid of going to [facility]. He has several months left on felony probation. He reports being in [place] without support and is depressed by this. He continues to report suicidal ideation. He reports non command auditory hallucinations. Sleep and appetite are erratic. No medication side effects reported. He reports being lightheaded when he stands since he donated plasma recently. Donating plasma is his only means of income. Mental Status Exam - Vital signs Last Vital Signs Temp 98.4 F 08/18/17 10:28 Pulse 78 08/18/17 10:28 Resp 20 08/18/17 10:28 BP 102/60 08/18/17 10:28 Pulse Ox 96 08/18/17 10:28 - Exam Narrative exam: MSE: Appearance: calm, cooperative Behavior: regular eye contact Speech: regular rate and tone Mood: "depressed" withdrawn Affect: congruent to mood Thought Process: linear Thought Content: denies HI's. AH, non command. SI present Motor Activity: ambulatory Cognition: A/O x 3 Insight: variable Judgment: variable Assessment and Plan Impression: Schizoaffective DO. JIGAR. Cannabis Use DO. Today the patient is calm and cooperative, but anxious during the assessment. Patient endorses SI's. DDx: R/O MDD, R/O Bipolar DO Recommendation/Plan: Continue 1013 with placement to inpatient psy services. Continue Buspar 10 mg PO BID for anxiety, Zyprexa 5 mg PO HS for mood/psychosis , Cogentin 0.5 mg PO HS for EPS prevention, and [place] 300 mg PO BID for mood.
[2017-08-18] MEDS: COGENTIN PO SCH (22:30)
[2017-08-19] MEDS ORDERED: BUSPAR ONE (11:28)
--- NOTE | 2017-08-19 11:58 | Progress Note ---
Subjective - Reason for Consult Consult date: 08/19/17 Reason for consult: Psychiatry Follow-up - Chief Complaint Chief complaint: "I am so much better" The patient is a 31-year-old male who presented for evaluation of mental health. This patient is known to me. Today the patient is calm and cooperative during the assessment. He stated that he plan to inquire about day programs at [facility] when discharged. He stated that he must get his life together. He stated that he rested well last night and denies SI's. He denies HI's and AVH 's. He denies any side effects of his medications. He stated that he uses [facility] for outpatient psy services. Mental Status Exam - Vital signs Last Vital Signs Temp 97.7 F 08/18/17 20:00 Pulse 63 08/18/17 20:00 Resp 18 08/18/17 20:00 BP 110/70 08/18/17 20:00 Pulse Ox 97 08/18/17 20:00 - Exam Narrative exam: MSE: Appearance: calm, cooperative Behavior: regular eye contact Speech: regular rate and tone Mood: "okay" Affect: congruent to mood Thought Process: circumstantial Thought Content: denies SI/HI's and AVH's Motor Activity: ambulatory Cognition: A/O x 3 Insight: fair Judgment: fair Assessment and Plan Impression: Schizoaffective DO. JIGAR. Cannabis Use DO. Today the patient is calm and cooperative during the assessment. [place] 0.4. DDx: R/O MDD, R/O Bipolar DO Recommendation/Plan: Rescind 1013. Continue Buspar 10 mg PO BID for anxiety, Zyprexa 5 mg PO HS for mood/psychosis, Cogentin 0.5 mg PO HS for EPS prevention , and [place] 300 mg PO BID for mood. Discussed possible metabolic side effects of Zyprexa with patient. Discussed generalized coping skills with patient. Patient can follow up at [facility].
[2017-08-19] MEDS: BUSPAR PO SCH (12:39)
[2017-08-19] MEDS: ESKALITH PO SCH (12:40)
[2017-08-19 17:39] VITALS: BP 108/74
== END 2017-08-19 18:02 ==
LOC: ED 20:53 → EEVIPCON 20:53 → ED 08-19 18:02
DX: R45.851 Suicidal ideations (principal); E86.0 Dehydration; F32.9 Major depressive disorder, single episode, unspecified; F17.200 Nicotine dependence, unspecified, uncomplicated; F31.9 Bipolar disorder, unspecified
CPT/HCPCS: 36415; 80048; 80178; 80307; 81001; 85007; 85025; 99285; G0480; 80320

== ENCOUNTER 2017-08-28 13:32 | Emergency (ER) | payer SELFPAY ==
[2017-08-28 13:57] LABS: Basophils # (Auto) 0.1 K/mm3 (0.0-0.1); Basophils % (Auto) 0.9 % (0.0-1.8); Hematocrit 44.5 % (35.5-45.6); Hemoglobin 14.9 gm/dl (11.8-15.2); Lymphocytes # (Auto) 2.1 K/mm3 (1.2-5.4); Lymphocytes % (Auto) 25.2 % (13.4-35.0); Mean Corpuscular HGB Conc 34 % (32-34); Mean Corpuscular Hemoglobin 31 pg (28-32); Mean Corpuscular Volume 92 fl (84-94); Monocytes # (Auto) 0.5 K/mm3 (0.0-0.8); Monocytes % (Auto) 5.7 % (0.0-7.3); Platelet Count 233 K/mm3 (140-440); Red Blood Count 4.85 M/mm3 (3.65-5.03); Red Cell Distribution Width 13.8 % (13.2-15.2)
[2017-08-28 14:17] LABS: Bilirubin,Urine NEG (Negative); Blood,Urine NEG (Negative); Color,Urine Yellow (Yellow); Hyaline Casts,Urine 3 /LPF; Mucus,Urine FEW /HPF; Protein,Urine <15 mg/dL mg/dL (Negative); Urobilinogen,Urine < 2.0 mg/dL (<2.0)
[2017-08-28 14:17] LABS: BUN/Creatinine Ratio 8; Blood Urea Nitrogen 8 mg/dL (9-20); Calcium 8.7 mg/dL (8.4-10.2); Hemolysis Index 16
[2017-08-28 14:26] LABS: Amphetamine Screen,Urine PRESUMPTIVE NEGATIVE; Benzodiazepines Screen,Urine PRESUMPTIVE NEGATIVE; Cannabinoid Screen,Urine PRESUMPTIVE NEGATIVE; Cocaine Screen,Urine PRESUMPTIVE NEGATIVE; Methadone Screen,Urine PRESUMPTIVE NEGATIVE; Opiate Screen,Urine PRESUMPTIVE NEGATIVE
--- NOTE | 2017-08-28 16:32 | Emergency Department Report ---
ED Psych HPI - General Chief Complaint: Psych Stated Complaint: SUICIDAL Time Seen by Provider: 08/28/17 15:55 Source: patient Mode of arrival: Ambulatory - History of Present Illness Initial Comments: Patient is 31 years old male history of schizophrenia presented to the ER with a chief complaint of suicidal ideation patient stating that he is here voices ask him to kill himself. Patient does have a specific plan by overdosing on his medication. Patient had positive visual hallucination. MD Complaint: suicidal ideation, feels depressed Associated Psychiatric Symptoms: depression, suicidal ideation, auditory hallucinations, visual hallucinations If Self Harm: admits thoughts of, has plan, intentional overdose - Related Data Home Medications Medication Instructions Recorded Confirmed Last Taken [place] Carbonate [Eskalith] 300 mg PO BID 10/01/16 08/28/17 08/28/17 FLUoxetine HCL [PROzac] 40 mg PO QAM 02/11/17 08/28/17 08/28/17 busPIRone [Buspar] 10 mg PO BID 02/11/17 08/28/17 08/28/17 FLUoxetine HCL [PROzac] 40 mg PO QDAY 04/06/17 08/28/17 08/28/17 Olanzapine [Zyprexa] 2.5 mg PO QHS 08/28/17 08/28/17 08/27/17 Allergies Allergy/AdvReac Type Severity Reaction Status Date / Time fluphenazine enanthate Allergy Swelling Verified 04/06/17 15:15 [From Prolixin] fluphenazine HCl Allergy Swelling Verified 04/06/17 15:15 [From Prolixin] lactase [From Dairy Aid] Allergy Nausea Verified 07/23/17 14:26 haloperidol [From Haldol] AdvReac Severe See Comment Verified 07/30/17 14:02 risperidone [From Risperdal] AdvReac Nausea Verified 07/23/17 14:26 ED Review of Systems ROS: Stated complaint: SUICIDAL Other details as noted in HPI Comment: All other systems reviewed and negative Constitutional: denies: chills, fever Respiratory: denies: cough, orthopnea, shortness of breath, SOB with exertion Cardiovascular: denies: chest pain, palpitations, dyspnea on exertion Gastrointestinal: denies: abdominal pain, nausea Genitourinary: denies: urgency Neurological: denies: headache, weakness, numbness Psychiatric: depression, auditory hallucinations, visual hallucinations, suicidal thoughts ED Past Medical Hx - Past Medical History Previous Medical History?: Yes Hx Psychiatric Treatment: Yes (Bipolar depression, Chronic anxiety, Schizo affective) Additional medical history: bronchitis - Surgical History Past Surgical History?: No - Social History Smoking Status: Current Every Day Smoker Substance Use Type: Alcohol - Medications Home Medications: Home Medications Medication Instructions Recorded Confirmed Last Taken Type Vanduser Carbonate [Eskalith] 300 mg PO BID 10/01/16 08/28/17 08/28/17 History FLUoxetine HCL [PROzac] 40 mg PO QAM 02/11/17 08/28/17 08/28/17 History busPIRone [Buspar] 10 mg PO BID 02/11/17 08/28/17 08/28/17 History FLUoxetine HCL [PROzac] 40 mg PO QDAY 04/06/17 08/28/17 08/28/17 History Olanzapine [Zyprexa] 2.5 mg PO QHS 08/28/17 08/28/17 08/27/17 History ED Physical Exam - General Limitations: No Limitations General appearance: alert, in no apparent distress - Head Head exam: Present: atraumatic, normocephalic, normal inspection - Eye Eye exam: Present: normal appearance, PERRL - ENT ENT exam: Present: normal exam, normal orophraynx, mucous membranes moist - Neck Neck exam: Present: normal inspection, full ROM. Absent: tenderness, meningismus - Respiratory Respiratory exam: Present: normal lung sounds bilaterally. Absent: respiratory distress, wheezes, rales, rhonchi, chest wall tenderness - Cardiovascular Cardiovascular Exam: Present: regular rate, normal rhythm, normal heart sounds - GI/Abdominal GI/Abdominal exam: Present: soft, normal bowel sounds. Absent: distended, tenderness, guarding, rebound, rigid, organomegaly, mass, bruit, pulsatile mass - Extremities Exam Extremities exam: Present: normal inspection, full ROM, normal capillary refill - Back Exam Back exam: Present: normal inspection, full ROM. Absent: CVA tenderness (L) - Neurological Exam Neurological exam: Present: alert, oriented X3, CN II-XII intact, normal gait - Psychiatric Psychiatric exam: Present: depressed, suicidal ideation. Absent: manic - Skin Skin exam: Present: warm, intact ED Course Vital Signs 08/28/17 13:38 Temperature 98.3 F Pulse Rate 113 H Respiratory 18 Rate Blood Pressure 122/67 O2 Sat by Pulse 95 Oximetry ED Medical Decision Making - Lab Data Result diagrams: 08/28/17 13:45 08/28/17 13:45 Critical care attestation.: If time is entered above; I have spent that time in minutes in the direct care of this critically ill patient, excluding procedure time. ED Disposition Clinical Impression: Suicidal ideation Disposition: DC/TX-65 PSY HOSP/PSY UNIT Is pt being admited?: No Condition: Stable Referrals: PRIMARY CARE, [Primary Care Provider] - 3-5 Days
--- NOTE | 2017-08-30 12:28 | Consultation ---
History of Present Illness - Reason for Consult Consult date: 08/30/17 Reason for consult: Mental Health Evaluation Requesting physician: DURGA RASHEED - Chief Complaint Chief complaint: "I am depressed" - History of Present Psychiatric Illness 31 y.o. white male presenting to [facility] for AH's and SI's. This patient is known to me. Today the patient is calm and cooperative during the assessment. He stated that he was experiencing voices yesterday telling him to kill himself. He stated that the voices has increased over the last couple days. The patient admit to being suicide without a plan. The patient has a hx of prior suicide attempts. He stated that he left his skilled nursing, but cannot explain why. Also, he is upset that his disability may take longer than usual to be approved. He stated being overwhelmed and started drinking alcohol (etoh) yesterday to lower his "stress and depression." The patient stated that he don't usually drink alcohol. He rate his depression 6/10, with 10 being the worse. He stated that he cannot sleep thinking about his disability claim, possibly being homeless, and hearing voices. He denies HI's and VH's. He denies recreational drug use. He stated being compliant with his medications. Medications and Allergies Allergies Allergy/AdvReac Type Severity Reaction Status Date / Time fluphenazine enanthate Allergy Swelling Verified 04/06/17 15:15 [From Prolixin] fluphenazine HCl Allergy Swelling Verified 04/06/17 15:15 [From Prolixin] lactase [From Dairy Aid] Allergy Nausea Verified 07/23/17 14:26 haloperidol [From Haldol] AdvReac Severe See Comment Verified 07/30/17 14:02 risperidone [From Risperdal] AdvReac Nausea Verified 07/23/17 14:26 Home Medications Medication Instructions Recorded Confirmed Last Taken Type [place] Carbonate [Eskalith] 300 mg PO BID 10/01/16 08/28/17 08/28/17 History FLUoxetine HCL [PROzac] 40 mg PO QAM 02/11/17 08/28/17 08/28/17 History busPIRone [Buspar] 10 mg PO BID 02/11/17 08/28/17 08/28/17 History FLUoxetine HCL [PROzac] 40 mg PO QDAY 04/06/17 08/28/17 08/28/17 History Olanzapine [Zyprexa] 2.5 mg PO QHS 08/28/17 08/28/17 08/27/17 History Past psychiatric history - Past Medical History Past Medical History: No medical history Past Surgical History: No surgical history - past Psychiatric treatment and history psychiatric treatment history: Multiple inpatient psy setting. The patient is seen at [facility] for outpatient psy services. Denies a fam psy hx. - Social History Social history: other (Homeless) Mental Status Exam - Vital signs Last Vital Signs Temp 97.9 F 08/30/17 07:43 Pulse 72 08/30/17 07:43 Resp 14 08/30/17 08:25 BP 96/47 08/30/17 07:43 Pulse Ox 97 08/30/17 08:25 - Exam Narrative exam: MSE: Appearance: calm, cooperative Behavior: regular eye contact Speech: regular rate and tone Mood: "depressed" Affect: flat Thought Process: circumstantial Thought Content: denies HI's and VH's Motor Activity: ambulatory Cognition: A/O x 3 Insight: variable Judgment: variable Results Result Diagrams: 08/28/17 13:45 08/28/17 13:45 All other labs normal. Assessment and Plan Assessment and plan: Impression: Schizoaffective DO. JIGAR. Today the patient is calm and cooperative during the assessment. [place] 0.1. Alcohol serum 0.06. The patient endorses SI' w without a plan. DDx: R/O MDD, R/O Bipolar DO, R/O Alcohol Induced Mood DO Recommendation/Plan: Continue 1013 with placement to inpatient psy services. Start Buspar 10 mg PO BID for anxiety, Zyprexa 5 mg PO HS for mood/psychosis, Cogentin 0.5 mg PO HS for EPS prevention, and [place] 300 mg PO BID for mood. Discussed possible metabolic side effects of Zyprexa with patient. Discussed generalized coping skills with patient. Discussed with patient the importance to abstain from excessive alcohol consumption (etoh).
[2017-08-30] MEDS: LITHOBID ER PO SCH ×2 (14:04→22:08)
[2017-08-30] MEDS: BUSPAR PO SCH ×2 (14:04→22:08)
[2017-08-30] MEDS: COGENTIN PO SCH (22:08)
[2017-08-31] MEDS: LITHOBID ER PO SCH ×2 (10:28→22:01)
[2017-08-31] MEDS: BUSPAR PO SCH ×2 (10:28→22:01)
[2017-08-31] MEDS: COGENTIN PO SCH (22:01)
[2017-09-01 08:01] VITALS: BP 106/79
--- NOTE | 2017-09-01 09:38 | Progress Note ---
Subjective - Reason for Consult Consult date: 09/01/17 Reason for consult: Psychiatry Follow-up - Chief Complaint Chief complaint: "I am okay" 31 y.o. white male presenting to [facility] for AH's and SI's. This patient is known to me. Today the patient is calm and cooperative during the assessment. He stated that he needed "a stress relief" so he decided to come to the ER. He stated that he can return to his prison once discharged. He stated that he will follow up with [facility] when discharged. He denies SI/HI's and AVH' s. He denies any side effects of his medications. Mental Status Exam - Vital signs Last Vital Signs Temp 97.7 F 09/01/17 07:59 Pulse 85 09/01/17 07:59 Resp 18 09/01/17 08:01 BP 106/79 09/01/17 07:59 Pulse Ox 99 09/01/17 08:01 - Exam Narrative exam: MSE: Appearance: calm, cooperative Behavior: regular eye contact Speech: regular rate and tone Mood: "okay" Affect: congruent to mood Thought Process: logical Thought Content: denies SI/HI's and AVH's Motor Activity: ambulatory Cognition: A/O x 3 Insight: appropriate Judgment: appropriate Assessment and Plan mpression: Schizoaffective DO. JIGAR. Today the patient is calm and cooperative during the assessment. [place] 0.1. Alcohol serum 0.06. The patient endorses SI' w without a plan. [place] 0.3. DDx: R/O MDD, R/O Bipolar DO, R/O Alcohol Induced Mood DO Recommendation/Plan: Rescind 1013. Continue Buspar 10 mg PO BID for anxiety, Zyprexa 5 mg PO HS for mood/psychosis, Cogentin 0.5 mg PO HS for EPS prevention , and [place] 300 mg PO BID for mood. Discussed possible metabolic side effects of Zyprexa with patient. Discussed generalized coping skills with patient. Discussed with patient the importance to abstain from excessive alcohol consumption (etoh). The patient can follow up with [facility] for outpatient psy services.
[2017-09-01] MEDS: BUSPAR PO SCH (10:56)
[2017-09-01] MEDS: LITHOBID ER PO SCH (10:56)
== END 2017-09-01 18:29 ==
LOC: ED 13:32 → EEVIPCON 13:32 → ED 09-01 18:29
DX: F31.9 Bipolar disorder, unspecified (principal); F25.9 Schizoaffective disorder, unspecified; F17.200 Nicotine dependence, unspecified, uncomplicated; Z88.8 Allergy status to other drugs, medicaments and biological substances; Z79.899 Other long term (current) drug therapy
CPT/HCPCS: 36415; 80048; 80178; 80307; 81001; 85025; 99284; G0480; 80320

== ENCOUNTER 2017-09-19 21:07 | Emergency (ER) | payer OTHER ==
[2017-09-19 22:43] LABS: Basophils # (Auto) 0.1 K/mm3 (0.0-0.1); Basophils % (Auto) 0.8 % (0.0-1.8); Hematocrit 44.3 % (35.5-45.6); Hemoglobin 15.1 gm/dl (11.8-15.2); Lymphocytes % (Auto) 38.9 % (13.4-35.0); Mean Corpuscular HGB Conc 34 % (32-34); Mean Corpuscular Hemoglobin 31 pg (28-32); Mean Corpuscular Volume 91 fl (84-94); Monocytes # (Auto) 0.6 K/mm3 (0.0-0.8); Monocytes % (Auto) 5.7 % (0.0-7.3); Platelet Count 203 K/mm3 (140-440); Red Blood Count 4.89 M/mm3 (3.65-5.03); Red Cell Distribution Width 14.3 % (13.2-15.2)
[2017-09-19 22:50] LABS: BUN/Creatinine Ratio 13; Blood Urea Nitrogen 10 mg/dL (9-20); Calcium 8.6 mg/dL (8.4-10.2); Hemolysis Index 22
--- NOTE | 2017-09-20 00:15 | Emergency Department Report ---
ED Psych HPI - General Chief Complaint: Psych Stated Complaint: MENTAL HEALTH Time Seen by Provider: 09/19/17 22:52 Source: patient Mode of arrival: Ambulatory Limitations: No Limitations - History of Present Illness Initial Comments: 31-year-old male with a past medical history bipolar and schizoaffective disorder presents to the hospital with complaints of suicidal ideation. Patient states he has been suicidal for "2 years". He states he was a recent in the family. He has been compliant with his meds and has a place to live. Positive auditory hallucinations. No physical complaints reported. He admits to marijuana use but denies other drug use or daily alcohol consumption - Related Data Home Medications Medication Instructions Recorded Confirmed Last Taken [place] Carbonate [Eskalith] 300 mg PO BID 10/01/16 09/19/17 08/28/17 FLUoxetine HCL [PROzac] 40 mg PO QAM 02/11/17 09/19/17 08/28/17 busPIRone [Buspar] 10 mg PO BID 02/11/17 09/19/17 08/28/17 Olanzapine [Zyprexa] 2.5 mg PO QHS 08/28/17 09/19/17 08/27/17 Allergies Allergy/AdvReac Type Severity Reaction Status Date / Time fluphenazine enanthate Allergy Swelling Verified 04/06/17 15:15 [From Prolixin] fluphenazine HCl Allergy Swelling Verified 04/06/17 15:15 [From Prolixin] lactase [From Dairy Aid] Allergy Nausea Verified 07/23/17 14:26 haloperidol [From Haldol] AdvReac Severe See Comment Verified 07/30/17 14:02 risperidone [From Risperdal] AdvReac Nausea Verified 07/23/17 14:26 ED Review of Systems ROS: Stated complaint: MENTAL HEALTH Other details as noted in HPI Comment: All other systems reviewed and negative Other: Constitutional: No fevers chills Eyes: No eye pain visual changes ENT: No ear pain or throat pain Neck: Denies pain Respiratory: Denies cough wheezing shortness of breath Cardiovascular: Denies chest pain, palpitations, syncope GI: Denies abdominal pain, nausea, vomiting, diarrhea : Denies dysuria Musculoskeletal: Denies back pain, joint swelling Skin: Denies rash, lesions, erythema Neurologic: Denies headache, numbness, weakness Psychiatric: As per HPI ED Past Medical Hx - Past Medical History Previous Medical History?: Yes Hx Psychiatric Treatment: Yes (Bipolar depression, Chronic anxiety, Schizo affective) Additional medical history: bronchitis - Surgical History Past Surgical History?: No - Social History Smoking Status: Current Every Day Smoker Substance Use Type: None - Medications Home Medications: Home Medications Medication Instructions Recorded Confirmed Last Taken Type [place] Carbonate [Eskalith] 300 mg PO BID 10/01/16 09/19/17 08/28/17 History FLUoxetine HCL [PROzac] 40 mg PO QAM 02/11/17 09/19/17 08/28/17 History busPIRone [Buspar] 10 mg PO BID 02/11/17 09/19/17 08/28/17 History Olanzapine [Zyprexa] 2.5 mg PO QHS 08/28/17 09/19/17 08/27/17 History ED Physical Exam - General Limitations: No Limitations - Skin Skin exam: Present: diaphoretic - Other Other exam information: General: No limitations, patient is alert in no acute distress Head exam: Atraumatic, normocephalic Eyes exam: Normal appearance, ENT: Moist mucous membrane, normal oropharynx Neck exam: Normal inspection, full range of motion, no meningismus nontender Respiratory exam: Clear to auscultation bilateral, no wheezes, rales, crackles Cardiovascular: Normal rate and rhythm, normal heart sounds Abdomen: Soft, nondistended, and nontender, with normal bowel sounds, no rebound, or guarding Extremity: Full range of motion normal inspection no deformity Back: Normal Inspection, full range of motion, no tenderness Neurologic: Alert, oriented x3, cranial nerves intact, no motor or sensory deficit Psychiatric: normal affect, normal mood Skin: Warm, dry, intact ED Course Vital Signs 09/19/17 22:14 Temperature 97.9 F Pulse Rate 97 H Respiratory 16 Rate Blood Pressure 110/54 O2 Sat by Pulse 97 Oximetry - Reevaluation(s) Reevaluation #1: 09/20/17 02:05 Patient remains calm and cooperative. ED Medical Decision Making - Lab Data Result diagrams: 09/19/17 22:21 09/19/17 22:21 Lab Results 09/19/17 09/19/17 09/19/17 Range/Units 22:21 22:21 22:21 WBC (4.5-11.0) K/mm3 RBC (3.65-5.03) M/mm3 Hgb (11.8-15.2) gm/dl Hct (35.5-45.6) % MCV (84-94) fl MCH (28-32) pg MCHC (32-34) % RDW (13.2-15.2) % Plt Count (140-440) K/mm3 Lymph % (Auto) (13.4-35.0) % [place] % (Auto) (0.0-7.3) % Eos % (Auto) (0.0-4.3) % Baso % (Auto) (0.0-1.8) % Lymph # (1.2-5.4) K/mm3 [place] # (0.0-0.8) K/mm3 Eos # (0.0-0.4) K/mm3 Baso # (0.0-0.1) K/mm3 Seg Neutrophils % (40.0-70.0) % Seg Neutrophils # (1.8-7.7) K/mm3 Sodium 140 (137-145) mmol/L Potassium 4.0 (3.6-5.0) mmol/L Chloride 104.9 (98-107) mmol/L Carbon Dioxide 22 (22-30) mmol/L Anion Gap 17 mmol/L BUN 10 (9-20) mg/dL Creatinine 0.8 (0.8-1.5) mg/dL Estimated GFR > 60 ml/min BUN/Creatinine Ratio 13 % Glucose 105 H (75-100) mg/dL Calcium 8.6 (8.4-10.2) mg/dL Urine Color (Yellow) Urine Turbidity (Clear) Urine pH (5.0-7.0) Ur Specific [place] (1.003-1.030) Urine Protein (Negative) mg/dL Urine Glucose (UA) (Negative) mg/dL Urine Ketones (Negative) mg/dL Urine Blood (Negative) Urine Nitrite (Negative) Urine Bilirubin (Negative) Urine Urobilinogen (<2.0) mg/dL Ur Leukocyte Esterase (Negative) Urine WBC (Auto) (0.0-6.0) /HPF Urine RBC (Auto) (0.0-6.0) /HPF Urine Mucus /HPF Salicylates < 0.3 L (2.8-20.0) mg/dL Urine Opiates Screen Urine Methadone Screen Acetaminophen < 5.0 L (10.0-30.0) ug/mL Ur Barbiturates Screen Ur Phencyclidine Scrn Ur Amphetamines Screen U Benzodiazepines Scrn [place] (0.0-1.2) mmol/L Urine Cocaine Screen U Marijuana (THC) Screen Drugs of Abuse Note Plasma/Serum Alcohol (0-0.07) % 09/19/17 09/19/17 09/19/17 Range/Units 22:21 22:21 23:33 WBC 10.2 (4.5-11.0) K/mm3 RBC 4.89 (3.65-5.03) M/mm3 Hgb 15.1 (11.8-15.2) gm/dl Hct 44.3 (35.5-45.6) % MCV 91 (84-94) fl MCH 31 (28-32) pg MCHC 34 (32-34) % RDW 14.3 (13.2-15.2) % Plt Count 203 (140-440) K/mm3 Lymph % (Auto) 38.9 H (13.4-35.0) % [place] % (Auto) 5.7 (0.0-7.3) % Eos % (Auto) 0.0 (0.0-4.3) % Baso % (Auto) 0.8 (0.0-1.8) % Lymph # 4.0 (1.2-5.4) K/mm3 Wake # 0.6 (0.0-0.8) K/mm3 Eos # 0.0 (0.0-0.4) K/mm3 Baso # 0.1 (0.0-0.1) K/mm3 Seg Neutrophils % 54.6 (40.0-70.0) % Seg Neutrophils # 5.6 (1.8-7.7) K/mm3 Sodium (137-145) mmol/L Potassium (3.6-5.0) mmol/L Chloride (98-107) mmol/L Carbon Dioxide (22-30) mmol/L Anion Gap mmol/L BUN (9-20) mg/dL Creatinine (0.8-1.5) mg/dL Estimated GFR ml/min BUN/Creatinine Ratio % Glucose (75-100) mg/dL Calcium (8.4-10.2) mg/dL Urine Color Yellow (Yellow) Urine Turbidity Clear (Clear) Urine pH 5.0 (5.0-7.0) Ur Specific [place] 1.023 (1.003-1.030) Urine Protein <15 mg/dl (Negative) mg/dL Urine Glucose (UA) Neg (Negative) mg/dL Urine Ketones Neg (Negative) mg/dL Urine Blood Neg (Negative) Urine Nitrite Neg (Negative) Urine Bilirubin Neg (Negative) Urine Urobilinogen 2.0 (<2.0) mg/dL Ur Leukocyte Esterase Neg (Negative) Urine WBC (Auto) 1.0 (0.0-6.0) /HPF Urine RBC (Auto) < 1.0 (0.0-6.0) /HPF Urine Mucus Few /HPF Salicylates (2.8-20.0) mg/dL Urine Opiates Screen Urine Methadone Screen Acetaminophen (10.0-30.0) ug/mL Ur Barbiturates Screen Ur Phencyclidine Scrn Ur Amphetamines Screen U Benzodiazepines Scrn [place] (0.0-1.2) mmol/L Urine Cocaine Screen U Marijuana (THC) Screen Drugs of Abuse Note Plasma/Serum Alcohol 0.07 (0-0.07) % 09/19/17 09/20/17 Range/Units 23:33 01:16 WBC (4.5-11.0) K/mm3 RBC (3.65-5.03) M/mm3 Hgb (11.8-15.2) gm/dl Hct (35.5-45.6) % MCV (84-94) fl MCH (28-32) pg MCHC (32-34) % RDW (13.2-15.2) % Plt Count (140-440) K/mm3 Lymph % (Auto) (13.4-35.0) % [place] % (Auto) (0.0-7.3) % Eos % (Auto) (0.0-4.3) % Baso % (Auto) (0.0-1.8) % Lymph # (1.2-5.4) K/mm3 [place] # (0.0-0.8) K/mm3 Eos # (0.0-0.4) K/mm3 Baso # (0.0-0.1) K/mm3 Seg Neutrophils % (40.0-70.0) % Seg Neutrophils # (1.8-7.7) K/mm3 Sodium (137-145) mmol/L Potassium (3.6-5.0) mmol/L Chloride (98-107) mmol/L Carbon Dioxide (22-30) mmol/L Anion Gap mmol/L BUN (9-20) mg/dL Creatinine (0.8-1.5) mg/dL Estimated GFR ml/min BUN/Creatinine Ratio % Glucose (75-100) mg/dL Calcium (8.4-10.2) mg/dL Urine Color (Yellow) Urine Turbidity (Clear) Urine pH (5.0-7.0) Ur Specific [place] (1.003-1.030) Urine Protein (Negative) mg/dL Urine Glucose (UA) (Negative) mg/dL Urine Ketones (Negative) mg/dL Urine Blood (Negative) Urine Nitrite (Negative) Urine Bilirubin (Negative) Urine Urobilinogen (<2.0) mg/dL Ur Leukocyte Esterase (Negative) Urine WBC (Auto) (0.0-6.0) /HPF Urine RBC (Auto) (0.0-6.0) /HPF Urine Mucus /HPF Salicylates (2.8-20.0) mg/dL Urine Opiates Screen Presumptive negative Urine Methadone Screen Presumptive negative Acetaminophen (10.0-30.0) ug/mL Ur Barbiturates Screen Presumptive negative Ur Phencyclidine Scrn Presumptive negative Ur Amphetamines Screen Presumptive negative U Benzodiazepines Scrn Presumptive negative [place] 0.3 (0.0-1.2) mmol/L Urine Cocaine Screen Presumptive negative U Marijuana (THC) Screen Presumptive negative Drugs of Abuse Note Disclamer Plasma/Serum Alcohol (0-0.07) % - Medical Decision Making 1013 and transfer form signed Labs unremarkable Patient medically cleared Current meds will be continued Pending acceptance for transfer - Differential Diagnosis psychosis, suicidal ideation Critical Care Time: No Critical care attestation.: If time is entered above; I have spent that time in minutes in the direct care of this critically ill patient, excluding procedure time. ED Disposition Clinical Impression: Suicidal ideation, Psychosis, Bipolar disorder, Schizoaffective disorder, Medical clearance for psychiatric admission Disposition: DC/TX-65 PSY HOSP/PSY UNIT Is pt being admited?: No Does the pt Need Aspirin: No Condition: Stable Time of Disposition: 02:06 (awaiting acceptance)
[2017-09-20 00:33] LABS: Bilirubin,Urine NEG (Negative); Blood,Urine NEG (Negative); Color,Urine Yellow (Yellow); Mucus,Urine FEW /HPF; Protein,Urine <15 mg/dL mg/dL (Negative); RBC,Urine < 1.0 /HPF (0.0-6.0)
[2017-09-20 01:27] LABS: Amphetamine Screen,Urine PRESUMPTIVE NEGATIVE; Benzodiazepines Screen,Urine PRESUMPTIVE NEGATIVE; Cannabinoid Screen,Urine PRESUMPTIVE NEGATIVE; Cocaine Screen,Urine PRESUMPTIVE NEGATIVE; Methadone Screen,Urine PRESUMPTIVE NEGATIVE; Opiate Screen,Urine PRESUMPTIVE NEGATIVE
[2017-09-20] MEDS ORDERED: ALUM-MAG HYDROX-SIMETH 200-200-20MG/5ML PO PRN (02:04)
[2017-09-20] MEDS ORDERED: TYLENOL PO PRN (02:04)
[2017-09-20] MEDS ORDERED: NON-FORMULARY (Fluoxetine Hcl [Prozac] 40 MG) PO SCH (10:00)
[2017-09-20] MEDS ORDERED: BUSPAR PO SCH (10:00)
[2017-09-20] MEDS: ESKALITH PO SCH ×2 (10:35→23:59)
[2017-09-20] MEDS: PROzac PO SCH (10:35)
--- NOTE | 2017-09-20 17:12 | Consultation ---
History of Present Illness - Reason for Consult Consult date: 09/20/17 Reason for consult: mental health evaluation Requesting physician: VANESSA MORRIS - Chief Complaint Chief complaint: Suicidal thoughts - History of Present Psychiatric Illness 31-year-old female with multiple ER visits and multiple hospitalizations in a psychiatric facility presented to the emergency room complaining of worsening in his mood and having those thoughts. Trigger was a recent in his family. Patient stated that his suicidal plan was to jump in front of a car. Patient did report worsening in his depressive symptoms including feeling sad and down, anhedonia, decreased motivation and helpless. His anxiety levels are also very high. Patient also endorsed having auditory hallucinations which have worsened. Patient denied any recent manic episodes. Medications and Allergies Allergies Allergy/AdvReac Type Severity Reaction Status Date / Time fluphenazine enanthate Allergy Swelling Verified 04/06/17 15:15 [From Prolixin] fluphenazine HCl Allergy Swelling Verified 04/06/17 15:15 [From Prolixin] lactase [From Dairy Aid] Allergy Nausea Verified 07/23/17 14:26 haloperidol [From Haldol] AdvReac Severe See Comment Verified 07/30/17 14:02 risperidone [From Risperdal] AdvReac Nausea Verified 07/23/17 14:26 Home Medications Medication Instructions Recorded Confirmed Last Taken Type [place] Carbonate [Eskalith] 300 mg PO BID 10/01/16 09/19/17 08/28/17 History FLUoxetine HCL [PROzac] 40 mg PO QAM 02/11/17 09/19/17 08/28/17 History busPIRone [Buspar] 10 mg PO BID 02/11/17 09/19/17 08/28/17 History Olanzapine [Zyprexa] 2.5 mg PO QHS 08/28/17 09/19/17 08/27/17 History Active Meds: Active Medications Acetaminophen (Tylenol) 650 mg PO Q4HR PRN PRN Reason: Pain MILD(1-3)/Fever >100.5/SAMUEL Al Hydrox/Mg Hydrox/Simethicone (Alum-Mag Hydrox-Simeth [phone]/5ml) 30 ml PO Q4HR PRN PRN Reason: Indigestion Buspirone HCl (Buspar) 10 mg PO BID COCO Last Admin: 03/16/18 10:35 Dose: 10 mg Fluoxetine HCl (Prozac) 40 mg PO QAM [facility] Last Admin: 09/20/17 10:35 Dose: 40 mg [place] Carbonate (Eskalith) 300 mg PO BID [facility] Last Admin: 09/20/17 10:35 Dose: 300 mg Olanzapine (Zyprexa) 2.5 mg PO QHS [facility] Past psychiatric history - past Psychiatric treatment and history psychiatric treatment history: Patient reported that he has had more than 30 psychiatric hospitalizations. Currently he does not receive any outpatient therapy. He did report having an outpatient psychiatrist. Current psychiatric meds: Zyprexa 10 mg at bedtime, lithium 300 mg twice a day and Prozac 40 mg in the morning. - Social History Social history: other (currently lives in a skilled nursing. He denies having financial stressors. He also reported that he is on probation for the last 4 years and he has 2 more months to go.) Mental Status Exam - Vital signs Last Vital Signs Temp 98.4 F 09/20/17 10:00 Pulse 87 09/20/17 10:00 Resp 18 09/20/17 10:00 BP 115/54 09/20/17 10:00 Pulse Ox 99 09/20/17 10:00 - Exam Orientation: time, place, person Affect: depressed, anxious Mood: calm, hopeless, sad, anxious Thought Process: Disorganized Perceptions: auditory Speech: slow Concentration: focused Motor activity: normal Level of consciousness: alert Memory: Intact Sleep Symptoms: None Results Result Diagrams: 09/19/17 22:21 09/19/17 22:21 Abnormal lab results 09/19/17 09/19/17 09/19/17 Range/Units 22:21 22:21 22:21 Lymph % (Auto) (13.4-35.0) % Glucose 105 H (75-100) mg/dL Salicylates < 0.3 L (2.8-20.0) mg/dL Acetaminophen < 5.0 L (10.0-30.0) ug/mL 09/19/17 Range/Units 22:21 Lymph % (Auto) 38.9 H (13.4-35.0) % Glucose (75-100) mg/dL Salicylates (2.8-20.0) mg/dL Acetaminophen (10.0-30.0) ug/mL All other labs normal. Assessment and Plan Assessment and plan: Assessment and plan: Impression: Schizoaffective DO. JIGAR. DDx: R/O MDD, R/O Bipolar DO, R/O Alcohol Induced Mood DO Recommendation/Plan: Continue 1013 with placement to inpatient psy services. Restart him on his Zyprexa 10 mg at bedtime, lithium 300 mg twice a day and Prozac 40 mg in the morning, and BuSpar 15 mg 3 times a day. Obtain lithium level. Discussed possible metabolic side effects of Zyprexa with patient. Discussed generalized coping skills with patient.
[2017-09-20] MEDS ORDERED: BUSPAR ONE (21:21)
[2017-09-20] MEDS: BUSPAR PO SCH (21:24)
[2017-09-21] MEDS: BUSPAR PO SCH ×3 (08:57→20:14)
[2017-09-21] MEDS: ESKALITH PO SCH ×2 (10:19→22:14)
[2017-09-21] MEDS: PROzac PO SCH (10:19)
[2017-09-22] MEDS: BUSPAR PO SCH ×3 (08:39→20:49)
[2017-09-22] MEDS: COLACE PO SCH ×2 (11:27→22:27)
[2017-09-22] MEDS: PROzac PO SCH (11:27)
[2017-09-22] MEDS: ESKALITH PO SCH ×2 (11:27→22:27)
[2017-09-23 09:42] VITALS: BP 105/56
[2017-09-23] MEDS: ESKALITH PO SCH (10:35)
[2017-09-23] MEDS: COLACE PO SCH (10:35)
[2017-09-23] MEDS: PROzac PO SCH (10:35)
[2017-09-23] MEDS: BUSPAR PO SCH ×2 (10:35→14:09)
--- NOTE | 2017-09-23 12:39 | Progress Note ---
Subjective - Reason for Consult Consult date: 09/23/17 Reason for consult: Psychiatry Follow-up - Chief Complaint Chief complaint: "I was overwhelmed" 31-year-old female with multiple ER visits and multiple hospitalizations in a psychiatric facility presented to the emergency room complaining of worsening in his mood and having those thoughts. This patient is known to me. Today the patient is calm and cooperative during the assessment. He stated that he was overwhelmed on admission because his uncle recently. He stated that he should have coped "better" with the of his uncle other than coming to [facility]. He stated that he wasn't suicidal, but felt safe coming to the hospital. He denies SI/HI's and AVH's. Per the staff, no behavioral disturbance overnight. Also, the patient is completing his ADL's. He denies any side effects of his medications. Mental Status Exam - Vital signs Last Vital Signs Temp 97.6 F 09/23/17 09:41 Pulse 84 09/23/17 09:41 Resp 16 09/23/17 09:41 BP 105/56 09/23/17 09:41 Pulse Ox 96 09/23/17 09:41 - Exam Narrative exam: MSE: Appearance: calm, cooperative Behavior: regular eye contact Speech: regular rate and tone Mood: "okay" Affect: congruent to mood Thought Process: logical Thought Content: denies SI/HI's and AVH's Motor Activity: sitting up in bed Cognition: A/O x3 Insight: appropriate Judgment: appropriate Assessment and Plan Impression: Hx of Schizoaffective DO. JIGAR. Alcohol Use DO. Today the patient is calm and cooperative during the assessment. The patient is no threat to self. Vaiva Vo 0.6. DDx: R/O MDD, R/O Bipolar DO, R/O Alcohol Induced Mood DO Recommendation/Plan: Rescind 1013. Continue Buspar 10 mg PO TID for anxiety, Zyprexa 10 mg PO HS for mood/psychosis, Vaiva Vo 300 mg PO BID for mood, and Prozac 40 mg PO daily for depression. Discussed possible metabolic side effects of Zyprexa with patient. Discussed generalized coping skills with patient. Discussed with patient the importance to abstain from excessive alcohol consumption (etoh). The patient can follow up with [facility] for outpatient psy services.
--- NOTE | 2017-09-23 17:16 | Event Note ---
Date: 09/23/17 The patient is seen and evaluated. His 1013 has been discontinued by the psychiatry team. He has no medical or psychiatric complaints at this time. He is not homicidal or suicidal. He walks with a steady gait, is clinically sober , and has no complaints. Psychiatry recommendations are reviewed and appreciated. This provider will not dispense BuSpar, but will discharge the patient with a 2 week supply of Zyprexa, lithium, Prozac. His primary care doctor or psychiatrist can continue his BuSpar if they feel like it is indicated or appropriate. Vital Signs 09/19/17 09/20/17 09/20/17 22:14 10:00 18:47 Temperature 97.9 F 98.4 F Pulse Rate 97 H 87 Respiratory 16 18 18 Rate Blood Pressure 110/54 Blood Pressure 115/54 [Left] O2 Sat by Pulse 97 99 99 Oximetry 09/20/17 09/20/17 09/21/17 20:45 22:28 08:48 Temperature 98.3 F 97.9 F Pulse Rate 85 67 Respiratory 16 16 18 Rate Blood Pressure 111/61 Blood Pressure 107/58 [Left] O2 Sat by Pulse 96 96 95 Oximetry 09/21/17 09/22/17 09/22/17 20:39 08:57 20:25 Temperature 98.7 F 97.7 F 98.3 F Pulse Rate 59 L 72 73 Respiratory 18 18 19 Rate Blood Pressure Blood Pressure 105/59 130/87 102/63 [Left] O2 Sat by Pulse 98 96 98 Oximetry 09/23/17 09/23/17 08:34 09:41 Temperature 97.6 F Pulse Rate 84 Respiratory 16 16 Rate Blood Pressure Blood Pressure 105/56 [Left] O2 Sat by Pulse 100 96 Oximetry Labs 09/19/17 09/19/17 09/19/17 22:21 22:21 22:21 WBC RBC Hgb Hct MCV MCH MCHC RDW Plt Count Lymph % (Auto) [place] % (Auto) Eos % (Auto) Baso % (Auto) Lymph # [place] # Eos # Baso # Seg Neutrophils % Seg Neutrophils # Sodium 140 Potassium 4.0 Chloride 104.9 Carbon Dioxide 22 Anion Gap 17 BUN 10 Creatinine 0.8 Estimated GFR > 60 BUN/Creatinine Ratio 13 Glucose 105 H Calcium 8.6 Urine Color Urine Turbidity Urine pH Ur Specific [place] Urine Protein Urine Glucose (UA) Urine Ketones Urine Blood Urine Nitrite Urine Bilirubin Urine Urobilinogen Ur Leukocyte Esterase Urine WBC (Auto) Urine RBC (Auto) Urine Mucus Salicylates < 0.3 L Urine Opiates Screen Urine Methadone Screen Acetaminophen < 5.0 L Ur Barbiturates Screen Ur Phencyclidine Scrn Ur Amphetamines Screen U Benzodiazepines Scrn Peridot Urine Cocaine Screen U Marijuana (THC) Screen Drugs of Abuse Note Plasma/Serum Alcohol 09/19/17 09/19/17 09/19/17 22:21 22:21 23:33 WBC 10.2 RBC 4.89 Hgb 15.1 Hct 44.3 MCV 91 MCH 31 MCHC 34 RDW 14.3 Plt Count 203 Lymph % (Auto) 38.9 H [place] % (Auto) 5.7 Eos % (Auto) 0.0 Baso % (Auto) 0.8 Lymph # 4.0 [place] # 0.6 Eos # 0.0 Baso # 0.1 Seg Neutrophils % 54.6 Seg Neutrophils # 5.6 Sodium Potassium Chloride Carbon Dioxide Anion Gap BUN Creatinine Estimated GFR BUN/Creatinine Ratio Glucose Calcium Urine Color Yellow Urine Turbidity Clear Urine pH 5.0 Ur Specific [place] 1.023 Urine Protein <15 mg/dl Urine Glucose (UA) Neg Urine Ketones Neg Urine Blood Neg Urine Nitrite Neg Urine Bilirubin Neg Urine Urobilinogen 2.0 Ur Leukocyte Esterase Neg Urine WBC (Auto) 1.0 Urine RBC (Auto) < 1.0 Urine Mucus Few Salicylates Urine Opiates Screen Urine Methadone Screen Acetaminophen Ur Barbiturates Screen Ur Phencyclidine Scrn Ur Amphetamines Screen U Benzodiazepines Scrn Peridot Urine Cocaine Screen U Marijuana (THC) Screen Drugs of Abuse Note Plasma/Serum Alcohol 0.07 09/19/17 09/20/17 09/23/17 23:33 01:16 12:55 WBC RBC Hgb Hct MCV MCH MCHC RDW Plt Count Lymph % (Auto) [place] % (Auto) Eos % (Auto) Baso % (Auto) Lymph # [place] # Eos # Baso # Seg Neutrophils % Seg Neutrophils # Sodium Potassium Chloride Carbon Dioxide Anion Gap BUN Creatinine Estimated GFR BUN/Creatinine Ratio Glucose Calcium Urine Color Urine Turbidity Urine pH Ur Specific [place] Urine Protein Urine Glucose (UA) Urine Ketones Urine Blood Urine Nitrite Urine Bilirubin Urine Urobilinogen Ur Leukocyte Esterase Urine WBC (Auto) Urine RBC (Auto) Urine Mucus Salicylates Urine Opiates Screen Presumptive negative Urine Methadone Screen Presumptive negative Acetaminophen Ur Barbiturates Screen Presumptive negative Ur Phencyclidine Scrn Presumptive negative Ur Amphetamines Screen Presumptive negative U Benzodiazepines Scrn Presumptive negative Peridot 0.3 0.6 Urine Cocaine Screen Presumptive negative U Marijuana (THC) Screen Presumptive negative Drugs of Abuse Note Disclamer Plasma/Serum Alcohol
--- NOTE | 2017-09-24 02:50 | Progress Note ---
Subjective - Reason for Consult Consult date: 09/21/17 Reason for consult: Psychiatric Follow-up Evaluation - Chief Complaint Chief complaint: "Depressed" Rock is a 31-year-old male who presents to the emergency room complaining of worsening in his mood and suicidal ideation. He has a hx of multiple ER visits and multiple hospitalizations in a psychiatric facility.Today, he states " I don't know how I feel. I'm going through a deep depression because of where I am at in my life. I feel like shit is never going to end." Currently, patient is anxious and depressed. He endorses intermittent auditory hallucinations and delusions. He reports medication compliance. He believes that constipation may be a possible side effect. Mental Status Exam - Vital signs Last Vital Signs Temp 97.6 F 09/23/17 09:41 Pulse 84 09/23/17 09:41 Resp 16 09/23/17 09:41 BP 105/56 09/23/17 09:41 Pulse Ox 96 09/23/17 09:41 - Exam Narrative exam: Mental Status Exam General Appearance: Casually dressed-hospital gown Sensorium: Clear Orientation: Alert and oriented x 3 (time, place, person) Affect: Depressed, anxious Mood: calm, hopeless, sad, anxious Thought Process: Tangential, circumstantial Perceptions: Auditory hallucinations of people having conversations Speech: Slow Concentration/ Attention: Focused Motor activity: Normal Suicidal Ideation/Plan: + intermittent with varies plans such as take pills or lay in front of care Homicidal Ideation/Plan: No Judgement: Poor Insight: Poor Assessment and Plan Assessment and plan: Impression: Schizoaffective DO and JIGAR. Today patient presents anxious, depressed and hopeless. He endorses intermittent paranoid thoughts, auditory hallucinations, SI with plan. He denies HI. DDx: R/O MDD, R/O Bipolar DO, R/O Alcohol Induced Mood DO Recommendation/Plan: 1. Continue 1013 with placement to inpatient psychiatric services. 2. Continue Zyprexa 10 mg at bedtime, lithium 300 mg twice a day and Prozac 40 mg in the morning, and BuSpar 15 mg 3 times a day. 3. Obtain lithium level. 4. Discussed possible metabolic side effects of Zyprexa with patient. Discussed generalized coping skills with patient. 5. Begin Colace 100mg po BID constipation.
== END 2017-09-23 17:29 | disposition home or self-care (01) ==
LOC: EEVIPCON 21:07 → ED 21:07
DX: R45.851 Suicidal ideations (principal); F29 Unspecified psychosis not due to a substance or known physiological condition; F31.9 Bipolar disorder, unspecified; F25.9 Schizoaffective disorder, unspecified; F17.200 Nicotine dependence, unspecified, uncomplicated
CPT/HCPCS: 36415; 80048; 80178; 80307; 81001; 85025; 99285; G0480; 80320